=== PATIENT | female | born 1965 | race Caucasian/White ===

== ENCOUNTER 2019-03-11 11:52 | Inpatient (IN) | payer OTHER ==
[2019-03-11 12:42] LABS: Absolute Lymphocytes (CBC) 3.1 K/uL (0.7-4.9); Basophils % 0.8 % (0-1.3); Hematocrit 40.7 % (36.0-45.0); Lymphocytes % 31.7 % (15.3-44.8); MPV 8.2 fL (7.6-11.3); RBC Red Blood Cell Count 4.83 M/uL (3.86-4.86)
--- NOTE | 2019-03-11 12:47 | RAD REPORT ---
EXAM DESCRIPTION: RAD - Chest Single View - 03/11/2019 12:42 pm CLINICAL HISTORY: slurred Chest pain. COMPARISON: ABDOMEN 1 VIEW KUB dated 10/10/2013; ABDOMEN ACUTE SERIES dated 02/29/2012 FINDINGS: Portable technique limits examination quality. The lungs are mildly emphysematous but grossly clear. The heart is normal in size. No displaced fract ures. IMPRESSION: No acute intrathoracic process suspected.
--- NOTE | 2019-03-11 13:01 | RAD REPORT ---
EXAM DESCRIPTION: CT - Ct Stroke Brain Wo Cont - 03/11/2019 12:52 pm CLINICAL HISTORY: SLURRED SPEECH Headache, drowsiness, CVA symptomology COMPARISON: HEAD BRAIN W O CONTRAST dated 09/02/2007 TECHNIQUE: All CT scans are performed using dose optimization technique as appropriate and may inclu de automated exposure control or mA/KV adjustment according to patient size. FINDINGS: No intracranial hemorrhage, hydrocephalus or extra-axial fluid collection.No areas of brai n edema or evidence of midline shift. Air-fluid levels present in the left maxillary antrum compatible with sinusitis. The calvarium is int act. IMPRESSION: No acute intracranial abnormality. If there is continued clinical concern for CVA, MR i maging of the brain would be recommended. Left maxillary sinusitis. The findings were discussed with Dr. Burnette on 03/11/2019 at 12:55 p.m. by telephone.
[2019-03-11 13:06] LABS: BUN Blood Urea Nitrogen 16 mg/dL (7-18); Bicarbonate 28 mmol/L (21-32); Glucose Level 108 mg/dL (74-106); Potassium 3.6 mmol/L (3.5-5.1); Sodium Level 139 mmol/L (136-145)
[2019-03-11] MEDS ORDERED: ACETAMINOPHEN 500 MG TAB ONE (13:19)
--- NOTE | 2019-03-11 14:41 | RAD REPORT ---
EXAM DESCRIPTION: MRI - Brain W/Wo Cont - 03/11/2019 2:07 pm CLINICAL HISTORY: . Headache, drowsiness, CVA symptomology COMPARISON: MRA Head Wo Cont dated 03/11/2019; Ct Stroke Brain Wo Cont dated 03/11/2019 TECHNIQUE: Multi-sequence, multiplanar MR imaging of the brain was performed with contrast. FINDINGS: No intracranial hemorrhage, hydrocephalus, or extra-axial fluid collection. No midline pauline ft is evident. No intracranial mass. 8 mm nonhemorrhagic lacunar infarct is present right basal gangl ia demonstrating acute DWI/ ADC features. The midline structures are normally formed. Moderate fluid is seen in the left maxillary antrum. Post-contrast images show no abnormal enhancement to suggest tumor or infection. IMPRESSION: Acute nonhemorrhagic lacunar infarct right basal ganglia measuring 8 mm. The findings were discussed with Dr. Burnette in the emergency room on 03/11/2019 at 2:37 p.m. by tele phone.
--- NOTE | 2019-03-11 14:43 | RAD REPORT ---
EXAM DESCRIPTION: MRI - MRA Head Wo Cont - 03/11/2019 2:32 pm CLINICAL HISTORY: SLURRED SPEECH CVA COMPARISON: Ct Stroke Brain Wo Cont dated 03/11/2019 FINDINGS: 3D noncontrast [id number] MR angiography of the [place] was performed. No aneurysm, flow-limiting stenosis or vascular malformation is seen. Forward flow seen in codominant vertebral arteries. The visualized dural venous sinuses appear patent. IMPRESSION: No significant flow abnormality of the [place] is identified.
--- NOTE | 2019-03-11 14:46 | RAD REPORT ---
EXAM DESCRIPTION: MRI - MRA Neck W/Wo Cont - 03/11/2019 2:32 pm CLINICAL HISTORY: . Headache, drowsiness, CVA COMPARISON: No comparisons FINDINGS: Contrast enhance 2D [id number] MR angiography of the neck vessels was performed. Left aortic arch is identified. Normal great vessel branching pattern is seen. Subclavian artery stent common carotid arteries are patent bilaterally. No significant carotid stenos is seen on either side. No significant flow abnormality detected. Antegrade flow is seen in the colon dominant vertebral elisha negin. IMPRESSION: No significant flow abnormality of the neck vessels.
[2019-03-11] MEDS ORDERED: MORPHINE 2 MG/ML SYR IV PRN (15:23)
[2019-03-11] MEDS ORDERED: ONDANSETRON 4 MG/2 ML VIAL IV PRN (15:23)
[2019-03-11] MEDS ORDERED: Oxycodone HCl/Acetaminophen 1 TAB TAB PO PRN (15:27)
[2019-03-11] MEDS ORDERED: ACETAMINOPHEN 325 MG TABLET PO PRN (15:27)
[2019-03-11] MEDS ORDERED: ALBUTEROL 2.5 MG/3 ML NEB SOL NEB PRN (15:27)
[2019-03-11] MEDS ORDERED: HYDRALAZINE HCL 20 MG/ML VIAL IV PRN (15:27)
[2019-03-11] MEDS ORDERED: ASPIRIN 81 MG CHEWABLE TABLET ONE (15:29)
--- NOTE | 2019-03-11 15:31 | EDPHYS ---
Physician Documentation [facility] Name: Jeanine Sandoval Age: 53 yrs Sex: Female : 1965 Arrival Date: 03/11/2019 Time: 11:54 Bed 26 Private MD: Barron Youngblood E ED Physician Donny Burnette HPI: 03/11 15:30 This 53 yrs old Female presents to ER via Ambulatory with complaints of kdr Slurred Speech. 15:30 The patient presents to the emergency department with a speech or higher order brain kdr function problem, aphasia, that is mild. Onset: The symptoms/episode began/occurred yesterday. Context: occurred at home, occurred while the patient was at rest. Associated signs and symptoms: Pertinent positives: weakness. Severity of symptoms: At their worst the symptoms were mild in the emergency department the symptoms have improved markedly, Except for speech. 18:45 Patient's baseline: Neuro: alert and fully oriented, Motor: no deficits, Ambulation: kdr walks without assistance, Speech: slurred, The patient has a previous history of HTN. Current symptoms: Slurred speech. The patient has not experienced similar symptoms in the past. The patient has not recently seen a physician. VP SCIENTIFIC AFFAIRS: 12:00 LMP N/A - Hysterectomy iw Historical: - Allergies: 12:01 Latex, Natural Rubber; iw - PMHx: 12:01 Hypertension; iw - PSHx: 12:01 Hysterectomy; Tubal ligation; iw - Immunization history:: Adult Immunizations up to date. - Social history:: Smoking status: Patient/guardian denies using tobacco. - Ebola Screening: : No symptoms or risks identified at this time. ROS: 18:45 Constitutional: Negative for fever, chills, and weight loss, Eyes: Negative for injury, kdr pain, redness, and discharge, ENT: Negative for injury, pain, and discharge, Neck: Negative for injury, pain, and swelling, Cardiovascular: Negative for chest pain, palpitations, and edema, Respiratory: Negative for shortness of breath, cough, wheezing, and pleuritic chest pain, Abdomen/GI: Negative for abdominal pain, nausea, vomiting, diarrhea, and constipation, Back: Negative for injury and pain, : Negative for injury, bleeding, discharge, and swelling, MS/Extremity: Negative for injury and deformity, Skin: Negative for injury, rash, and discoloration, Psych: Negative for depression, anxiety, suicide ideation, homicidal ideation, and hallucinations, Allergy/Immunology: Negative for hives, rash, and allergies, Endocrine: Negative for neck swelling, polydipsia, polyuria, polyphagia, and marked weight changes, Hematologic/Lymphatic: Negative for swollen nodes, abnormal bleeding, and unusual bruising. 18:45 Neuro: Positive for 18:48 Neuro: Positive for The patient had acute onset of slurred speech and possible left kdr facial droop. The facial component has resolved. Exam: 18:48 Constitutional: This is a well developed, well nourished patient who is awake, alert, kdr and in no acute distress. Head/Face: Normocephalic, atraumatic. Eyes: Pupils equal round and reactive to light, extra-ocular motions intact. Lids and lashes normal. Conjunctiva and sclera are non-icteric and not injected. Cornea within normal limits. Periorbital areas with no swelling, redness, or edema. ENT: Nares patent. No nasal discharge, no septal abnormalities noted. Tympanic membranes are normal and external auditory canals are clear. Oropharynx with no redness, swelling, or masses, exudates, or evidence of obstruction, uvula midline. Mucous membranes moist. Neck: Trachea midline, no thyromegaly or masses palpated, and no cervical lymphadenopathy. Supple, full range of motion without nuchal rigidity, or vertebral point tenderness. No Meningismus. Chest/axilla: Normal chest wall appearance and motion. Nontender with no deformity. No lesions are appreciated. Cardiovascular: Regular rate and rhythm with a normal S1 and S2. No gallops, murmurs, or rubs. Normal PMI, no JVD. No pulse deficits. Respiratory: Lungs have equal breath sounds bilaterally, clear to auscultation and percussion. No rales, rhonchi or wheezes noted. No increased work of breathing, no retractions or nasal flaring. Abdomen/GI: Soft, non-tender, with normal bowel sounds. No distension or tympany. No guarding or rebound. No evidence of tenderness throughout. Back: No spinal tenderness. No costovertebral tenderness. Full range of motion. Skin: Warm, dry with normal turgor. Normal color with no rashes, no lesions, and no evidence of cellulitis. MS/ Extremity: Pulses equal, no cyanosis. Neurovascular intact. Full, normal range of motion. Psych: Awake, alert, with orientation to person, place and time. Behavior, mood, and affect are within normal limits. 18:48 Neuro: Orientation: is normal, Mentation: is normal, Memory: is normal, Cranial nerves: grossly normal, Cerebellar function: Motor: no acute changes, Sensation: no obvious gross deficits, Gait: is steady. Vital Signs: 12:00 BP 126 / 94; Pulse 100; Resp 18 S; Temp 97.3; Pulse Ox 96% on R/A; Weight 81.65 kg; iw Height 5 ft. 4 in. (162.56 cm); 13:18 BP 140 / 99; Pulse 100; Resp 18; Pulse Ox 99% ; bp 14:34 Pulse 76; Resp 16; Pulse Ox 99% ; bp 15:17 BP 127 / 85; Pulse 74; Resp 20; Temp 98.0(O); Pulse Ox 98% ; lt1 17:10 BP 132 / 92; Pulse 85; Resp 16; Pulse Ox 97% ; bp 12:00 Body Mass Index 30.90 (81.65 kg, 162.56 cm) iw NIH Stroke Scale Scores: 12:13 NIHSS Score: 1 bp MDM: 12:58 ED course: CT head neg/Denys. kdr 15:30 Patient medically screened. kdr 18:48 Data reviewed: vital signs, nurses notes, lab test result(s), radiologic studies. kdr Counseling: I had a detailed discussion with the patient and/or guardian regarding: the historical points, exam findings, and any diagnostic results supporting the discharge/admit diagnosis, lab results, radiology results, the need for further work-up and treatment in the hospital. 18:48 Physician consultation: Bryson Saxena MD regarding admission, consult, patient's kdr condition, need to evaluate the patient as soon as possible, and will see patient in inpatient room, tomorrow. 03/11 12:19 Order name: Basic Metabolic Panel; Complete Time: 13:13 kdr 03/11 12:19 Order name: CBC with Diff; Complete Time: 13:13 kdr 03/11 12:19 Order name: Protime (+inr); Complete Time: 13:13 kdr 03/11 12:19 Order name: Ptt, Activated; Complete Time: 13:13 kdr 03/11 12:41 Order name: Glucose, Ancillary Testing; Complete Time: 13:13 EDMS 03/11 15:34 Order name: CBC with Automated Diff EDMS 03/11 15:34 Order name: Protime (+INR) EDMS 03/11 15:34 Order name: CBC with Automated Diff EDMS 03/11 15:34 Order name: CBC with Automated Diff EDMS 03/11 15:34 Order name: Comprehensive Metabolic Panel EDMS 03/11 15:34 Order name: Comprehensive Metabolic Panel EDMS 03/11 15:34 Order name: Lipid Profile EDMS 03/11 15:34 Order name: Lipid Profile EDMS 03/11 15:34 Order name: Troponin I EDMS 03/11 12:19 Order name: CT Stroke Brain w/o Contrast; Complete Time: 13:13 kdr 03/11 12:19 Order name: Stroke CXR 1 View; Complete Time: 13:13 kdr 03/11 13:42 Order name: MRA Head Wo Cont; Complete Time: 15:16 EDMS 03/11 13:42 Order name: Brain W/Wo Cont; Complete Time: 15:16 EDMS 03/11 13:42 Order name: MRA Neck W/Wo Cont; Complete Time: 15:16 EDMS 03/11 15:34 Order name: Echo with Doppler EDMS 03/11 15:34 Order name: Troponin I EDMS 03/11 15:34 Order name: Troponin I EDMS 03/11 15:34 Order name: Troponin I EDMS 03/11 15:37 Order name: Carotid Artery Bilateral EDMS 03/11 15:51 Order name: Urinalysis W/Microscopic EDMS 03/11 15:53 Order name: ROD IFA Screen w/Reflex EDMS 03/11 15:53 Order name: Homocysteine EDMS 03/11 12:19 Order name: EKG; Complete Time: 12:20 kdr 03/11 12:19 Order name: Accucheck; Complete Time: 12:32 kdr 03/11 12:19 Order name: Cardiac monitoring; Complete Time: 12:21 kdr 03/11 12:19 Order name: EKG - Nurse/Tech; Complete Time: 12:32 kdr 03/11 12:19 Order name: IV Saline Lock; Complete Time: 12:32 kdr 03/11 12:19 Order name: Labs collected and sent; Complete Time: 12:32 kdr 03/11 12:19 Order name: NPO; Complete Time: 12:21 kdr 03/11 12:19 Order name: O2 Per Protocol; Complete Time: 12:21 kdr 03/11 12:19 Order name: O2 Sat Monitoring; Complete Time: 12:21 kdr 03/11 12:19 Order name: Stroke Swallow Screen; Complete Time: 12:21 kdr 03/11 15:34 Order name: CONS Pharmacy Consult EDHI 03/11 15:34 Order name: Physical Therapy Consult EDHI 03/11 15:34 Order name: NPO EDMS 03/11 15:34 Order name: NPO EDMS 03/11 15:34 Order name: NPO EDMS 03/11 15:36 Order name: Occupational Therapy Consult EDHI Administered Medications: 13:19 Drug: Tylenol 1000 mg Route: PO; bp 14:18 Follow up: Response: No adverse reaction; Pain is decreased bp 15:29 Drug: Aspirin Chewable Tablet 324 mg Route: PO; bp Point of Care Testing: Blood Glucose: 13:18 Blood Glucose: 116 mg/dL; bp Ranges: Critical Glucose Levels:Adult <50 mg/dl or >400 mg/dl <40 mg/dl or >180 mg/dl Disposition: 03/11/19 15:30 Hospitalization ordered by Lauren Betancourt for Inpatient Admission. Preliminary diagnosis are Right basal ganglia lacunar infarct, Slurred speech. - Bed requested for Telemetry/MedSurg (observation). - Status is Inpatient Admission. bp - Condition is Fair. - Problem is new. - Symptoms are unchanged. UTI on Admission? No NIH Stroke Scale - NIH Stroke Score Date: 03/11/2019 Time: 12:13 Total Score = 1 1a. Level of Consciousness (LOC) - 0(Alert) 1b. Level of Consciousness (LOC) (Year \T\ Age) - 0(Both) 1c. LOC Commands (Open \T\ Closes Eyes/Notcher) - 0(Both) 2. Best Gaze (Lateral Gaze Paresis) - 0(Normal) 3. Visual Field Loss - 0(No visual loss) 4. Facial Palsy - 0(Normal) 5a. Left Arm: Motor (10-second hold) - 0(No drift) 5b. Right Arm: Motor (10-second hold) - 0(No drift) 6a. Left Leg: Motor (5-second hold - always test supine) - 0(No drift) 6b. Right Leg: Motor (5-second hold - always test supine) - 0(No drift) 7. Limb Ataxia (finger/nose \T\ heel/snyder - test with eyes open) - 0(Absent) 8. Sensory Loss (pinprick arms/legs/face) - 0(Normal) 9. Best Language: Aphasia (description/naming/reading) - 0(No aphasia) 10. Dysarthria (speech clarity - read or repeat words) - 1(Mild to Moderate) 11. Extinction and Inattention (visual/tactile/auditory/spatial/personal) - 0(No abnormality) Initials: bp Signatures: Dispatcher [employer] EDHI Donny Burnette MD MD kdr Charity Plummer RN RN iw Stephan Murillo RN RN ja1 Deandre Zamora, ADENIKE RN bp Corrections: (The following items were deleted from the chart) 13:42 13:15 MR STROKE PROTOCOL+MRI.RAD.BRZ ordered. [facility] 17:01 15:30 Hospitalization Ordered by Lauren Betancourt MD for Inpatient Admission. ja1 Preliminary diagnosis is Right basal ganglia lacunar infarct; Slurred speech. Bed requested for Telemetry/MedSurg (observation). Status is Inpatient Admission. Condition is Fair. Problem is new. Symptoms are unchanged. UTI on Admission? No. kdr 18:03 17:01 03/11/2019 15:30 Hospitalization Ordered by Lauren Betancourt MD for bp Inpatient Admission. Preliminary diagnosis is Right basal ganglia lacunar infarct; Slurred speech. Bed requested for Telemetry/MedSurg (observation). Status is Inpatient Admission. Condition is Fair. Problem is new. Symptoms are unchanged. UTI on Admission? No. ja1 18:49 18:45 Constitutional: Negative for fever, chills, and weight loss, Eyes: kdr Negative for injury, pain, redness, and discharge, ENT: Negative for injury, pain, and discharge, Neck: Negative for injury, pain, and swelling, Cardiovascular: Negative for chest pain, palpitations, and edema, Respiratory: Negative for shortness of breath, cough, wheezing, and pleuritic chest pain, Abdomen/GI: Negative for abdominal pain, nausea, vomiting, diarrhea, and constipation, Back: Negative for injury and pain, : Negative for injury, bleeding, discharge, and swelling, MS/Extremity: Negative for injury and deformity, Skin: Negative for injury, rash, and discoloration, Psych: Negative for depression, anxiety, suicide ideation, homicidal ideation, and hallucinations, Allergy/Immunology: Negative for hives, rash, and allergies, Endocrine: Negative for neck swelling, polydipsia, polyuria, polyphagia, and marked weight changes, Hematologic/Lymphatic: Negative for swollen nodes, abnormal bleeding, and unusual bruising, kdr
--- NOTE | 2019-03-11 15:31 | ER ---
Nurse's Notes [facility] Name: Jeanine Sandoval Age: 53 yrs Sex: Female : 1965 Arrival Date: 03/11/2019 Time: 11:54 Bed 26 Private MD: Barron Youngblood E Diagnosis: Right basal ganglia lacunar infarct;Slurred speech Presentation: 03/11 11:58 Presenting complaint: Patient states: slurred speech since yesterday, last known well 6 iw pm yesterday. negative arm drift,. no weakness in legs, feels sluggish, felt like her face was weak yesterday but has improved, no facial droop at this time. Transition of care: patient was not received from another setting of care. Onset of symptoms was March 10, 2019 at 18:00. Risk Assessment: Do you want to hurt yourself or someone else? Patient reports no desire to harm self or others. Initial Sepsis Screen: Does the patient meet any 2 criteria? No. Patient's initial sepsis screen is negative. Does the patient have a suspected source of infection? No. Patient's initial sepsis screen is negative. Care prior to arrival: None. 11:58 Method Of Arrival: Ambulatory iw 11:58 Acuity: TRINA 2 iw 12:00 An acute neurological deficit is present. The charge nurse has been notified. The bp patient has been moved to a treatment area. Pre-hospital glucose is not applicable to this patient. Triage Assessment: 12:12 The onset of the patients symptoms was March 10, 2019 at 18:00. General: Appears bp distressed, comfortable, obese, Behavior is cooperative, appropriate for age, anxious. Pain: Denies pain. EENT: No deficits noted. Neuro: Level of Consciousness is awake, alert, obeys commands, Oriented to person, place, time, situation, Appropriate for age Explosive Expert are equal bilaterally Moves all extremities. Full function Gait is unsteady, Speech is slurred, Facial symmetry appears normal, Pupils are PERRLA, Reports SLURRED SPEECH. Cardiovascular: Rhythm is sinus rhythm. Respiratory: No deficits noted. GI: No signs and/or symptoms were reported involving the gastrointestinal system. : No signs and/or symptoms were reported regarding the genitourinary system. Derm: No deficits noted. Musculoskeletal: No deficits noted. CROZER: 12:00 LMP N/A - Hysterectomy iw Stroke Activation: Symptom onset > 6 hours Physician: Stroke Attending; Name: ; Notified At: ; Arrived At: Physician: Chief Stroke Resident; Name: ; Notified At: ; Arrived At: Physician: Stroke Resident; Name: ; Notified At: ; Arrived At: Physician: ED Attending; Name: ; Notified At: ; Arrived At: Physician: ED Resident; Name: ; Notified At: ; Arrived At: Historical: - Allergies: 12:01 Latex, Natural Rubber; iw - PMHx: 12:01 Hypertension; iw - PSHx: 12:01 Hysterectomy; Tubal ligation; iw - Immunization history:: Adult Immunizations up to date. - Social history:: Smoking status: Patient/guardian denies using tobacco. - Ebola Screening: : No symptoms or risks identified at this time. Screenin:16 Abuse screen: Denies threats or abuse. Denies injuries from another. Nutritional bp screening: No deficits noted. Tuberculosis screening: No symptoms or risk factors identified. Fall Risk No fall in past 12 months (0 pts). No secondary diagnosis (0 pts). No IV (0 pts). Ambulatory Aid- None/Bed Rest/Nurse Assist (0 pts). Gait- Weak (10 pts.). Mental Status- Oriented to own ability (0 pts). Total Rhodes Fall Scale indicates No Risk (0-24 pts). Assessment: 12:13 VAN Scoring: Arm Drift: Patients demonstrates NO arm weakness. Patient is VAN Negative. bp The patient has not been NPO before screening. The patient is currently on the following diet: REGULAR The patient is alert, and able to follow commands. The patient exhibits slurred or garbled speech. The patient is not exhibiting difficulty speaking. The patient does not exhibit difficulty understanding words. The patient is able to swallow own secretions with no drooling or need for suction. Patient tolerated one teaspoon of water. No drooling, immediate coughing, gurgling, or clearing of the throat was noted. The patient tolerated 90mL of water. No drooling, immediate coughing, gurgling, or clearing of the throat was noted. The patient passed the bedside swallow screening. Oral medications may be given as ordered. Contact Physician for further diet orders. Provider notified of bedside swallow screening results: Donny Heller MD. T-PA (Activase) Screening: Contraindications: Patient reports onset of signs and symptoms of stroke greater than 6 hours ago: Yes. General: SEE TRIAGE NOTE. 13:18 Reassessment: DR HELLER AT B/S. MRI PENDING. bp 13:27 Reassessment: PT TO MRI. bp 14:21 Reassessment: PT REMAINS IN MRI. bp 14:33 Reassessment: PT RETURNED FROM MRI. bp 15:21 Reassessment: ALL CURRENT ORDERS COMPLETED, DISPO PENDING. bp Vital Signs: 12:00 BP 126 / 94; Pulse 100; Resp 18 S; Temp 97.3; Pulse Ox 96% on R/A; Weight 81.65 kg; iw Height 5 ft. 4 in. (162.56 cm); 13:18 BP 140 / 99; Pulse 100; Resp 18; Pulse Ox 99% ; bp 14:34 Pulse 76; Resp 16; Pulse Ox 99% ; bp 15:17 BP 127 / 85; Pulse 74; Resp 20; Temp 98.0(O); Pulse Ox 98% ; lt1 17:10 BP 132 / 92; Pulse 85; Resp 16; Pulse Ox 97% ; bp 12:00 Body Mass Index 30.90 (81.65 kg, 162.56 cm) iw NIH Stroke Scale Scores: 12:13 NIHSS Score: 1 bp ED Course: 11:54 Patient arrived in ED. mr 11:54 Barron Youngblood MD is Private Physician. mr 12:00 Triage completed. iw 12:02 Deandre Zamora, RN is Primary Nurse. bp 12:13 Arm band placed on. bp 12:14 Donny Heller MD is Attending Physician. kdr 12:16 Patient has correct armband on for positive identification. Placed in gown. Bed in low bp position. Call light in reach. Side rails up X2. surveillance system monitor on. Pulse ox on. NIBP on. 12:31 Initial lab(s) drawn, by ED staff, sent to lab. Inserted saline lock: 20 gauge in right lt1 antecubital area, using aseptic technique. 12:32 EKG done, by photovoltaic technician. reviewed by Donny Heller MD. at1 12:43 Stroke CXR 1 View In Process Unspecified. EDMS 12:54 CT Stroke Brain w/o Contrast In Process Unspecified. EDMS 14:09 MRA Head Wo Cont In Process Unspecified. EDMS 14:11 Brain W/Wo Cont In Process Unspecified. EDMS 14:11 MRA Neck W/Wo Cont In Process Unspecified. EDMS 15:26 Lauren Betancourt MD is Hospitalizing Provider. kdr 17:08 No provider procedures requiring assistance completed. Patient admitted, IV remains in bp place. 17:19 Initial lab(s) drawn, by me, sent to lab. sg Administered Medications: 13:19 Drug: Tylenol 1000 mg Route: PO; bp 14:18 Follow up: Response: No adverse reaction; Pain is decreased bp 15:29 Drug: Aspirin Chewable Tablet 324 mg Route: PO; bp Point of Care Testing: Blood Glucose: 13:18 Blood Glucose: 116 mg/dL; bp Ranges: Outcome: 15:30 Decision to Hospitalize by Provider. kdr 17:14 Admitted to Med/surg accompanied by tech, via wheelchair, room 228, with chart, Report bp called to KAY JEONG 17:14 Condition: stable 17:14 Instructed on the need for admit. 18:03 Patient left the ED. bp NIH Stroke Scale - NIH Stroke Score Date: 03/11/2019 Time: 12:13 Total Score = 1 1a. Level of Consciousness (LOC) - 0(Alert) 1b. Level of Consciousness (LOC) (Year \T\ Age) - 0(Both) 1c. LOC Commands (Open \T\ Closes Eyes/Invoice Clerk) - 0(Both) 2. Best Gaze (Lateral Gaze Paresis) - 0(Normal) 3. Visual Field Loss - 0(No visual loss) 4. Facial Palsy - 0(Normal) 5a. Left Arm: Motor (10-second hold) - 0(No drift) 5b. Right Arm: Motor (10-second hold) - 0(No drift) 6a. Left Leg: Motor (5-second hold - always test supine) - 0(No drift) 6b. Right Leg: Motor (5-second hold - always test supine) - 0(No drift) 7. Limb Ataxia (finger/nose \T\ heel/snyder - test with eyes open) - 0(Absent) 8. Sensory Loss (pinprick arms/legs/face) - 0(Normal) 9. Best Language: Aphasia (description/naming/reading) - 0(No aphasia) 10. Dysarthria (speech clarity - read or repeat words) - 1(Mild to Moderate) 11. Extinction and Inattention (visual/tactile/auditory/spatial/personal) - 0(No abnormality) Initials: bp Signatures: Dispatcher [employer] Braeden Mustafa, Donny Black RN, MD MD [facility] mr Charity Plummer RN RN iw Ayah Smith, ve teacher EKG Tat1 Deandre Zamora RN RN bp Arellano, Brissa lt1
--- NOTE | 2019-03-11 15:32 | EKG ---
Test Date: 2019-03-11 Test Time: 12:30:06 Art Class Model: MARIANA MEASUREMENT RESULTS: Intervals: Rate: 74 TX: 130 QRSD: 92 QT: 414 QTc: 459 Alba: P: 63 TX: 130 QRS: 42 T: 29 INTERPRETIVE STATEMENTS: Normal sinus rhythm Normal ECG No previous ECG available for comparison Electronically Signed On 03-11-19 15:31:44 PHOTOGRAPHER MOTION PICTURE by Marquis Swift
[2019-03-11] MEDS: ASPIRIN EC 81 MG TAB PO SCH (16:00)
--- NOTE | 2019-03-11 17:02 | RAD REPORT ---
EXAM DESCRIPTION: US - CP - 03/11/2019 4:33 pm CLINICAL HISTORY: CVA COMPARISON: MRA neck same date TECHNIQUE: Real-time sonographic evaluation of both carotid systems was performed. Walker scale and Do ppler interrogation were performed with waveform tracing bilaterally. FINDINGS: Normal high resistance waveforms are noted in both external carotid arteries. The common c arotid arteries and internal carotid arteries show normal low resistance waveforms. No significant plaque formation is seen. Peak systolic and end diastolic velocity values and the ICA/ CCA ratios are in the non-hemodynamically significant range. Antegrade flow seen in both vertebral arteries. Velocity values and ratios were recorded and are retained in the patient's imaging records. IMPRESSION: No significant atherosclerotic changes noted. No evidence of a hemodynamically significant stenosis.
[2019-03-11 18:14] VITALS: BMI 31.4
[2019-03-11] MEDS: HEPARIN 5000 UNIT/ML 1 ML VIAL SQ SCH (18:46)
[2019-03-11] MEDS: CLOPIDOGREL 75 MG TABLET PO SCH (21:51)
[2019-03-11] MEDS: ATORVASTATIN 20 MG TAB PO SCH (21:51)
[2019-03-12] MEDS: HEPARIN 5000 UNIT/ML 1 ML VIAL SQ SCH ×3 (01:05→16:12)
--- NOTE | 2019-03-12 04:03 | HP ---
Date of Admission: 03/11/2019 Presenting Complaint: Slurred speech. History Of Present Illness: Ms. Jeanine Sandoval is a 53-year-old female with history of hypertension si nce several years, chronic tobacco use, and family history of CVA, who presented because of new onset slurred speech, accompanied with headache and development of unsteady gait yesterday while gardening . She said her headache was intense, more frontal. She denies any associated nausea or vomiting, no fevers. She has taken some aspirins as well as doubled up on lisinopril medication with subsequent improvement in her headache, but her slurred speech did not entirely improve. However, we can note t his morning, she was able to talk a bit better, but symptoms continued to persist and she presented t o the ED. In the ED, she had head CT scan done which was negative. MRI shows right basal ganglia la cunar infarct. The patient has been admitted for CVA. She still admit to intermittent headache now. She denies any weakness of any extremity. She denies any abnormal sensation or tingling sensation. Past Medical History: Significant for hypertension since 7 years. Past Surgical History: None. Family History: Significant for mother with CVA in her 60s. Social History: Patient have a history of tobacco use. Smokes about half a pack a day since the t 19 years. She denies any alcohol or illicit drug use. She is fully functional at baseline. Allergies: NO KNOWN DRUG ALLERGIES. Home Medications: Lisinopril, patient unsure of dose. She also takes daily aspirin. Review of Systems: All systems reviewed x14 were negative except as mentioned above. Physical Examination: Current Vital Signs: Blood pressure of 120/86, pulse of 74, respiratory rate of 18, O2 saturation is 96% on room air. Temperature afebrile at 97.7. General: Overweight middle-aged female, not in any distress, appears intermittently anxious. HEENT: Head is atraumatic, normocephalic. Pupils equal and reactive to light. Extraocular motor mo vement intact. Neck: No JVD. No carotid bruit. Respiratory: Good air entry. No crepitations. Cardiovascular: S1, S2. Rate and rhythm regular. No murmur. GI: Abdomen full, soft, nontender. Bowel sounds positive. Rectal: Deferred. Extremities: Varicose veins of lower extremity, but no pedal edema. No calf tenderness. Neuro: Patient is alert, conversant. No asymmetrical facial weakness elicited. Power tone over ext remities are symmetrical globally. Deep tendon reflexes are 2+. No pronator drift. Laboratory Data: EKG showed normal sinus rhythm at 74 beats per minute. No ST-segment changes. No hypertensive pattern. WBC 9.7, hemoglobin 13.7, platelets 231, creatinine 0.67, sodium 139, potassiu m 3.6. Homocysteine level pending. Glucose 108. INR 1.0, PTT 35. Head CT shows no acute intracran ial pathology. MRI of the brain shows right basal lacunar infarct. MRA of the head and neck shows n o acute area of reduced flow or stenosis including [place]. Impression: 1.Right basal ganglia infarct. 2.Hypertension. 3.Chronic tobacco use. Plan: We will admit patient to observation. We will manage patient for the followin.New-onset CVA. We will consult Neurology. Patient outside window for tPA given onset since yeste rday. We will consult PT and OT. We will also obtain bedside speech and swallow eval. We will star t patient on aspirin and Plavix, since already taking aspirin at home. We will obtain lipid panel. We will start empiric atorvastatin now. We will obtain homocysteine as well as ROD levels. We start patient on folic acid. Obtain TSH. 2.Hypertension. Blood pressure at level for adequate neuro perfusion. We will hold home medication s for now. IV hydralazine if MAP greater than 90. 3.DVT prophylaxis, subcutaneus heparin despite new CVA. 4.Tobacco use. Need for tobacco cessation advised. We will start nicotine patch. 5.We will obtain echocardiogram and carotid Doppler ultrasound. Disposition: Possible hospital stay for 24 to 48 hours. We admit patient to inpatient status now. EO/MODL Voice ID: [id number]
[2019-03-12 06:38] LABS: Absolute Lymphocytes (CBC) 2.4 K/uL (0.7-4.9); Basophils % 0.6 % (0-1.3); Hematocrit 42.9 % (36.0-45.0); Lymphocytes % 27.8 % (15.3-44.8); MPV 8.2 fL (7.6-11.3); RBC Red Blood Cell Count 4.98 M/uL (3.86-4.86)
[2019-03-12 06:42] LABS: Protime INR 0.99
[2019-03-12 07:01] LABS: ALT/SGPT 22 U/L (12-78); AST/SGOT 14 U/L (15-37); Albumin 3.3 g/dL (3.4-5.0); Alkaline Phosphatase 116 U/L (45-117); BUN Blood Urea Nitrogen 16 mg/dL (7-18); Bicarbonate 25 mmol/L (21-32); Bilirubin Total 0.3 mg/dL (0.2-1.0); Glucose Level 97 mg/dL (74-106); HDL Cholesterol 50 mg/dL (40-60); LDL Cholesterol, Calculated 89 (<130); Potassium 3.9 mmol/L (3.5-5.1); Protein, Total 6.6 g/dL (6.4-8.2); Sodium Level 140 mmol/L (136-145); Troponin I < 0.02 ng/mL (0.0-0.045)
[2019-03-12] MEDS: FOLIC ACID 1 MG TABLET PO SCH (07:54)
[2019-03-12] MEDS: ASPIRIN EC 81 MG TAB PO SCH (07:54)
[2019-03-12] MEDS: CLOPIDOGREL 75 MG TABLET PO SCH (07:54)
--- NOTE | 2019-03-12 09:55 | P.PN ---
Subjective Date of Service: 03/12/19 Chief Complaint: Seen , feels fine , states speech better now Subjective: No new changes Review of Systems 10-point ROS is otherwise unremarkable Physical Examination - Vital Signs Temperature: 97.4 F Blood Pressure: 103/61 Pulse: 62 Respirations: 20 Pulse Ox (%): 96 - Physical Exam General: Alert, In no apparent distress, Oriented x3 HEENT: Atraumatic, Normocephalic, PERRLA Neck: Supple, 2+ carotid pulse no bruit, JVD not distended Respiratory: Clear to auscultation bilaterally, Normal air movement Cardiovascular: No edema, Normal pulses, Regular rate/rhythm, Normal S1 S2 Gastrointestinal: Normal bowel sounds, Soft and benign Musculoskeletal: No clubbing, No swelling Integumentary: No rashes, No breakdown Neurological: Normal gait, Normal speech, Normal strength at 5/5 x4 extr ( speech unchanged from eval yesterday ) - Studies Laboratory Data (last 24 hrs) 03/11/19 12:29: PT 11.8, INR 1.00, APTT 35.0 03/11/19 12:29: WBC 9.7, Hgb 13.7, Hct 40.7, Plt Count 231 03/11/19 12:29: Sodium 139, Potassium 3.6, BUN 16, Creatinine 0.67, Glucose 108 H Laboratory Last Values WBC 8.8 K/uL (4.3-10.9) 03/12/19 06:13 RBC 4.98 M/uL (3.86-4.86) H 03/12/19 06:13 Hgb 14.3 g/dL (12.0-15.0) 03/12/19 06:13 Hct 42.9 % (36.0-45.0) 03/12/19 06:13 MCV 86.2 fL (80-100) 03/12/19 06:13 MCH 28.7 pg (27.0-35.0) 03/12/19 06:13 MCHC 33.3 g/dL (32.0-36.0) 03/12/19 06:13 RDW 14.7 % (12.1-15.2) 03/12/19 06:13 Plt Count 219 K/uL (152-406) 03/12/19 06:13 MPV 8.2 fL (7.6-11.3) 03/12/19 06:13 Neutrophils % 64.3 % (41.7-73.7) 03/12/19 06:13 Lymphocytes % 27.8 % (15.3-44.8) 03/12/19 06:13 Monocytes % 4.4 % (3.3-12.3) 03/12/19 06:13 Eosinophils % 2.9 % (0-4.4) 03/12/19 06:13 Basophils % 0.6 % (0-1.3) 03/12/19 06:13 Absolute Neutrophils 5.7 K/uL (1.8-8.0) 03/12/19 06:13 Absolute Lymphocytes 2.4 K/uL (0.7-4.9) 03/12/19 06:13 Absolute Monocytes 0.4 K/uL (0.1-1.3) 03/12/19 06:13 Absolute Eosinophils 0.3 K/uL (0-0.5) 03/12/19 06:13 Absolute Basophils 0.1 K/uL (0-0.5) 03/12/19 06:13 PT 11.7 SECONDS (9.5-12.5) 03/12/19 06:13 INR 0.99 03/12/19 06:13 APTT 35.0 SECONDS (24.3-36.9) 03/11/19 12:29 Sodium 140 mmol/L (136-145) 03/12/19 06:13 Potassium 3.9 mmol/L (3.5-5.1) 03/12/19 06:13 Chloride 109 mmol/L (98-107) H 03/12/19 06:13 Carbon Dioxide 25 mmol/L (21-32) 03/12/19 06:13 BUN 16 mg/dL (7-18) 03/12/19 06:13 Creatinine 0.65 mg/dL (0.55-1.3) 03/12/19 06:13 Estimated GFR > 90 mL/min (=/>90) 03/12/19 06:13 Glucose 97 mg/dL (74-106) 03/12/19 06:13 POC Glucose 116 mg/dl (65-120) 03/11/19 12:28 Calcium 8.4 mg/dL (8.5-10.1) L 03/12/19 06:13 Total Bilirubin 0.3 mg/dL (0.2-1.0) 03/12/19 06:13 AST 14 U/L (15-37) L 03/12/19 06:13 ALT 22 U/L (12-78) 03/12/19 06:13 Alkaline Phosphatase 116 U/L (45-117) 03/12/19 06:13 Troponin I < 0.02 ng/mL (0.0-0.045) 03/12/19 06:13 Serum Total Protein 6.6 g/dL (6.4-8.2) 03/12/19 06:13 Albumin 3.3 g/dL (3.4-5.0) L 03/12/19 06:13 Globulin 3.3 g/dL (2.3-3.5) 03/12/19 06:13 Albumin/Globulin Ratio 1.0 (1.1-1.8) L 03/12/19 06:13 Triglycerides 164 mg/dL (<150) H 03/12/19 06:13 Cholesterol 172 mg/dL (<200) 03/12/19 06:13 LDL Cholesterol, Calc 89 (<130) 03/12/19 06:13 HDL Cholesterol 50 mg/dL (40-60) 03/12/19 06:13 Cholesterol/HDL Ratio 3.44 03/12/19 06:13 Medications List Reviewed: Yes Assessment & Plan - Problems (Diagnosis) (1) Lacunar infarct, acute Current Visit: Yes Status: Acute Discharge Plan: Home Plan to discharge in: 24 Hours - Code Status/Comfort Care Code Status Assessed: Yes Code Status: Full Code Physician Review: Patient Assessed, Agree with Above Assessment and Plan Physician Review Additional Text: # Right basal ganglia lacunar infarct- follow pending echo -carotid us neg for flow abn - MRI brain and MRA reviewed - follow formal neurology eval -pending homocysteine and malu levels - follow PT and OT eval today , may need speech eval also - although normal speech flow now # HTN -controlled, BP borderline low -c/w to hold off lisinopril # Tob use -cessation advised , on nicotine patch # DVT prop - sc hep Critical Care: No Time Spent Managing Pts Care (In Minutes): 30
[2019-03-12 09:58] LABS: Urine Appearance CLEAR; Urine Bilirubin NEGATIVE (NEG); Urine Blood NEGATIVE (NEG); Urine Color YELLOW; Urine Glucose NEGATIVE (NEG); Urine Protein NEGATIVE (NEG); Urine Specific Gravity 1.025 (1.005-1.030); Urine Urobilinogen 0.2 mg/dL (0.2-1.0); Urine pH 5.5 (5.0-7.0)
[2019-03-12] MEDS ORDERED: INFLUENZA VACCINE (for 3y+) 0.5 ML DOSE IMVAC ONE (10:00)
[2019-03-12 10:27] LABS: Urine Bacteria <20 /HPF (<20); Urine Culture Reflex Order NOT NEEDED; Urine Mucus LIGHT /HPF (NONE SEEN); Urine RBC <5 /HPF (NONE SEEN)
[2019-03-12] MEDS ORDERED: LORazepam 2 MG/ML VIAL IV PRN (17:35)
[2019-03-12] MEDS: ATORVASTATIN 20 MG TAB PO SCH (20:26)
--- NOTE | 2019-03-12 22:23 | CON ---
Reason For Consultation: Consultation called because of stroke. History Of Present Illness: Ms. Sandoval is a 53-year-old right-handed patient with 5-year h istory of hypertension and 20+ year history of smoking at least half a pack of cigarettes daily and a strong family history of stroke, who comes in with an acute stroke. She was well until 6:00 p.m. on March 10, when she had sudden onset difficulty getting her words out as words were slurred and s he had some problems getting her thoughts together. She denied weakness in the legs or arms or loss of sensation. She arrived at [facility] the following day, that is March 11, at 11:54 a.m . She was worked up by a brain CT scan, which showed no acute ischemic hemorrhagic change. Given th e patient was well out of the window for tissue plasminogen activator, she was not given tPA. Her lebron bsequent workup included brain MRI and the stay following admission identified an 8 mm acute nonhemor rhagic right basal ganglia stroke. Her additional workup revealed a negative MRA of the head and nec k and her carotid Doppler study showed no evidence of any significant stenosis and her electrocardiog krystle showed a normal sinus rhythm. Chest x-ray showed no acute abnormalities in the cardiothoracic re gion as imaged by x-ray. She admits to taking an aspirin daily prior to this event and was seen by Naresh Chan, her primary care physician from which she is taking antihypertensive medications. She is not taking medications for dyslipidemia and does not have diabetes mellitus. Since her admiss ion, her symptoms have resolved largely with minor dysarthria. Otherwise, she has no deficits in ter ms of face, arm, or leg weakness or numbness. Past Medical History: As indicated. Surgical History: Tubal ligation, hysterectomy. Social History: Smokes regularly, drinks a lot of caffeinated beverages. Denies alcohol use. Allergies: LATEX AND RUBBER. Family History: Mother and father had strokes. Review of Systems: She denies any recent fevers, chills, nausea, vomiting, myalgias, arthralgias, headache, weight rousseau e, rash, or psychiatric complaints. No gastrointestinal or genitourinary issues. Physical Examination: Vital Signs: Blood pressure 129/94, pulse 85, respiratory rate 16, temperature 97.6, oxygen saturati on 96% room air, weight 183 pounds, height 5 feet 4 inches, BMI 31.5. General: Ms. Sandoval is resting comfortably in bed. She is in no acute distress. HEENT: She is normocephalic, atraumatic. Sclerae are anicteric. Oropharynx is pink and moist. Neck: Supple. Chest: Clear. Heart: Regular. Extremities: Show no edema, cyanosis, or clubbing. Neurological: She is alert and oriented to person, place, and situation. She has no expressive or r eceptive aphasias. She just has mild difficulty with labial lingual and guttural sounds. Her crania l nerve examination revealed no focal deficits in terms of facial sensation which is intact bilateral ly. Her face is symmetric with equal excursions. Pupils round and reactive to light and accommodati on. Extraocular movements are intact. Hearing intact bilaterally and tongue and palate are in midli ne. Motor examination in the upper and lower extremities 5/5 proximally and distally. Sensory exami nation intact to light touch, pinprick, temperature in the arms and legs bilaterally. Coordination i ntact in the upper and lower extremities. Gait, normal stance, right arm swing. Ambulates without a ssistive device. NIH stroke scale is 1 for mild dysarthria. Laboratory Studies: Complete blood count with differential is normal. Coagulation panel is normal. Chemistries are unremarkable. Glucose ranged from 90-116, calcium 8.6. Liver function studies are essentially normal. AST 14, ALT 22, alkaline phosphate 116, LDL cholesterol 89, HDL cholesterol 50, cholesterol HDL ratio is 3.44, homocysteine level is pending and ROD is also pending. Urinalysis andrea ws 5-10 epithelial cells, otherwise unremarkable. Assessment: Ms. Sandoval is a 53-year-old patient with stroke in the setting of smoking and hypertens ion. Stroke appears to be lacunar, lipohyalinosis, possibly related to hypertension again and smokin g. She was taking an aspirin daily and yet had the stroke. She actually was mowing her yard when stroke occurred and maybe not well hydrated. She does have a family history of stroke and both par ents having strokes. 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 Sh e may require a short course of outpatient speech therapy. 2.Aspirin 81 mg and Plavix 75 mg daily along with folic acid 1 mg daily. 3.She should continue Lipitor 20 mg at bedtime. 4.The patient was instructed to stop smoking cigarettes. 5.She may have some short-term permissive hypertension, but may start an HAYLEE inhibitor, perhaps at 2 .5 mg daily after discharge. 6.After discharge, follow up in Dr. Saxena's clinic 1 month later. JUSTINA/PREM Voice ID: [id number] Report ID: [id number]
[2019-03-13] MEDS: HEPARIN 5000 UNIT/ML 1 ML VIAL SQ SCH ×2 (00:24→09:00)
[2019-03-13 08:41] VITALS: O2SAT 93
[2019-03-13] MEDS: ASPIRIN EC 81 MG TAB PO SCH (09:22)
[2019-03-13] MEDS: CLOPIDOGREL 75 MG TABLET PO SCH (09:23)
[2019-03-13] MEDS: FOLIC ACID 1 MG TABLET PO SCH (09:23)
--- NOTE | 2019-03-13 10:10 | P.DS ---
Admission Date: 03/11/19 Discharge Date: 03/13/19 Disposition: DC HOME/HOME HEALTH CARE Reason for Admission: Seen , feels fine , states speech better now - Problems (1) Lacunar infarct, acute Current Visit: Yes Status: Acute Brief History of Present Illness: Patient with hx of chronic tobacco use admitted for new onset slurred speech and left sided numbness Hospital Course: on admission patient was noted with right basal ganglia lacunar infract on MRI brain after an initial neg head CT . MRA head and neck, carotid US and Echo shows no issues . She was seen by neurology and recommended outpt speech refferal . She is talking well now with no slowness or slurring. SHE WAS STARTED ON LIPITOR DESPITE NORMAL LIPID PROFILE Vital Signs/Physical Exam: Temp Pulse Resp BP Pulse Ox 98.1 F 72 16 127/79 95 03/13/19 04:00 03/13/19 04:00 03/13/19 04:00 03/13/19 04:00 03/13/19 04:00 General: Alert, In no apparent distress, Oriented x3 HEENT: Atraumatic, Normocephalic, PERRLA Neck: Supple, 2+ carotid pulse no bruit Respiratory: Clear to auscultation bilaterally, Normal air movement Cardiovascular: No edema, Normal pulses, Regular rate/rhythm, Normal S1 S2 Gastrointestinal: Normal bowel sounds, Soft and benign Neurological: Normal gait, Normal speech, Normal strength at 5/5 x4 extr, Sensation intact Laboratory Data at Discharge: WBC 8.8 K/uL (4.3-10.9) 03/12/19 06:13 Hgb 14.3 g/dL (12.0-15.0) 03/12/19 06:13 Hct 42.9 % (36.0-45.0) 03/12/19 06:13 Plt Count 219 K/uL (152-406) 03/12/19 06:13 PT 11.7 SECONDS (9.5-12.5) 03/12/19 06:13 INR 0.99 03/12/19 06:13 APTT 35.0 SECONDS (24.3-36.9) 03/11/19 12:29 Sodium 140 mmol/L (136-145) 03/12/19 06:13 Potassium 3.9 mmol/L (3.5-5.1) 03/12/19 06:13 BUN 16 mg/dL (7-18) 03/12/19 06:13 Creatinine 0.65 mg/dL (0.55-1.3) 03/12/19 06:13 Glucose 97 mg/dL (74-106) 03/12/19 06:13 Total Bilirubin 0.3 mg/dL (0.2-1.0) 03/12/19 06:13 AST 14 U/L (15-37) L 03/12/19 06:13 ALT 22 U/L (12-78) 03/12/19 06:13 Alkaline Phosphatase 116 U/L (45-117) 03/12/19 06:13 Troponin I < 0.02 ng/mL (0.0-0.045) 03/13/19 05:49 Triglycerides 164 mg/dL (<150) H 03/12/19 06:13 Cholesterol 172 mg/dL (<200) 03/12/19 06:13 HDL Cholesterol 50 mg/dL (40-60) 03/12/19 06:13 Cholesterol/HDL Ratio 3.44 03/12/19 06:13 Home Medications: Dextroamphetamine/Amphetamine [Adderall 30 mg Tablet] 30 mg PO BID 03/12/19 Hydrochlorothiazide 25 mg PO DAILY 03/12/19 Ibuprofen 800 mg PO DAILY 03/12/19 lisinopriL [Lisinopril] 20 mg PO DAILY 03/12/19 Aspirin [Aspirin EC 325 MG] 325 mg PO DAILY #30 tablet. 03/13/19 Atorvastatin Calcium [Lipitor*] 20 mg PO BEDTIME #30 tab 03/13/19 New Medications: Aspirin [Aspirin EC 325 MG] 325 mg PO DAILY #30 tablet. Atorvastatin Calcium [Lipitor*] 20 mg PO BEDTIME #30 tab Patient Discharge Instructions: Speech outpatient referral Diet: Low sodium Activity: Ad lorna Followup: Bryson Saxena MD [ASSOCIATE-ACTIVE - CAN ADMIT] - Time spent managing pt's care (in minutes): 35
[2019-03-13 10:20] VITALS: BP 131/81; TEMP 97.4
== END 2019-03-13 11:59 | disposition home or self-care (01) | DRG 66 ==
LOC: ER 11:52 → ERHOLD 16:02 → 2ND 17:15
PROVIDERS: ADMIT Internal Medicine; ATTEND Internal Medicine
DX: I63.81 Other cerebral infarction due to occlusion or stenosis of small artery (principal); R47.81 Slurred speech; F17.210 Nicotine dependence, cigarettes, uncomplicated; Z82.3 Family history of stroke
CPT/HCPCS: 36415; 70450; 70544; 70549; 70553; 71045; 80048; 80053; 80061; 81001; 82947; 83090; 84484; 85025; 85610; 85730; 86038; 93005; 93880; 94760; 97116; 97161; 99285; A9577; J1644; J2270

== ENCOUNTER 2020-03-03 17:26 | Emergency (ER) | payer OTHER ==
--- OUTSIDE RECORDS SUMMARY | 2020-03-03 17:28 | XMS REPORT | Summary of Care ---
:1965 Author Organization [facility] Address [address] [place] [address] Care Team Providers Name Role Phone Barron Youngblood Primary Care Provider Reason for Visit Reason Comments Follow-up varicose veins Encounter Details Date Type Department Care Team Description 02/21/2020 Office Visit [facility] Vascular Babita Otero U lcer of left lower Surgery- Mario Alberto MCCRARY extremity, limited to [address] breakdown of skin [address] [place], [place] (Primary Dx) [address] [address] [place], [place] [phone] [address] [phone] Allergies No Known Allergiesdocumented as of this encounter (statuses as of 02/22/2020) Medications Medication Sig Dispensed Refills Start Date End Date Status lisinopril-hydrochlor TK 1 T PO QD 0 08/31/2019 Active othiazide 20-25 mg per tablet Compression Socks, Use as directed 2 Each 0 09/09/2019 Active Medium MiscIndications: Venous reflux mupirocin 2 % Apply to area(s) 22 g 2 02/21/2020 Active ointmentIndications: 3 (three) times Ulcer of left lower daily. extremity, limited to breakdown of skin traMADoL 50 mg Take 1 tablet by 20 tablet 0 02/21/2020 020 Active tabletIndications: mouth every 6 acute pain (six) hours as needed for Pain (scale 4-6) for up to 7 days. Indications: acute pain documented as of this encounter (statuses as of 02/22/2020) Active Problems Problem Noted Date Varicose veins of both lower extremities with inflamma tion 11/11/2019 Venous ulcer of ankle, left 11/11/2019 Hypertension 11/11/2019 documented as of this encounter (statuses as of 02/22/2020) Social History Tobacco Use Types Packs/Day Years Used Date Never Assessed Sex Assigned at Date Recorded Not on file COVID-19 Exposure Response Date Recorded In the last month, have you been in contact with No / Unsure 02/21/2020 9:20 AM CASINO RUNNER someone who was confirmed or suspected to have Coronavirus / COVID-19? documented as of this encounter Last Filed Vital Signs Vital Sign Reading Time Taken Comments Blood Pressure 157/101 02/21/2020 9:39 AM CASINO RUNNER Pulse 95 02/21/2020 9:39 AM CASINO RUNNER Temperature 36.2 C (97.1 F) 02/21/2020 9:39 AM CASINO RUNNER Respiratory Rate 20 02/21/2020 9:39 AM CASINO RUNNER Oxygen Saturation 96% 02/21/2020 9:39 AM CASINO RUNNER Inhaled Oxygen Concentration - - Weight 87.5 kg (193 lb) 02/21/2020 9:39 AM CASINO RUNNER Height 167.6 cm (5' 6") 02/21/2020 9:39 AM CASINO RUNNER Body Mass Index 31.15 02/21/2020 9:39 AM CASINO RUNNER documented in this encounter Patient Instructions Patient InstructionsHenry Irving DO - 02/21/2020 9:30 AM CSTMupirocin ointment for left leg wound Continue compression on right lower extremity; haylee wrap compression to left lower extremity Follow up in clinic in 1 month NO RUNNER documented in this encounter Progress Notes Maria Teresa Booker MD - 02/21/2020 9:30 AM CSTI discussed the patient with Dr. Irving then personally examined the patient on 02/21/2020. I agreewith the note as detailed by Dr. Irving. I actively participated in the decision- making process regarding the assessment and plan of care. Please see the resident's note for additional details. Wound is improving. Continue compression. RTC in 1 month Maria Teresa Booker MD, [facility] Vascular Surgery NO RUNNER Henry Irving DO - 02/21/2020 9:30 AM CSTVASCULAR SURGERY CLINIC NOTE Progress Note Date of Service: 02/21/20 Visit type: Follow up for varicose veins and venous ulcer after telemed visit HISTORY OF PRESENT ILLNESS: Ms. Sandoval is a 54 year old year old female patient with a history of venous insufficiency and bilateral varicose veins who is here 1 week after telehealth visit for worsening L ulcer of her calf thathas not been healing for about 6 months now. There is redness around the wound and has tenderness. She also has swelling and pain in her thighs bilaterally. She states that she was told to try to keep the ulcer dry to promote healing, but it has not dried at all and is draining thin yellowish fluid with more skin breakdown. She also says the varicose veins in her thighs have increased in size and describes them as "huge and gross" since she's been wearing the compression stockings to her knee. She has swelling 2x the morning size, pain and feelings of heaviness in her legs bilaterally. She had vein surgery 6-7 years ago at [place] at [facility] but unsure what surgery it was. She had a ulcer on the right calf at that time and varicose veins at that time; which resolved after the surgery with compression stockings for several months. She stopped wearing compression since and in the past year or two, developed the new symptoms of leg heaviness and varicose veins. Denies any fever or chills. No chest pain. No SOB.She still takes lisinopril- HCTZ. She has pain associated with standing for long periods of time. 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 Interval H&P 02/20/20 Patient presents for follow up of venous insufficiency and LLE wound. States the bacitracin was not working well for her. She began using mupirocin with improvement in her leg wound. Venous duplex withdeep and superficial venous system reflux. Prominent varicose veins. REVIEW OF SYSTEMS: General/Constitutional: Negative except per HPI Skin/Breast: Negative except per HPI HEENT: Negative except per HPI CV: Negative except per HPI Respiratory: Negative except per HPI GI: Negative except per HPI : Negative except per HPI Musculoskeletal: left leg wound Neurologic: Negative except per HPI Hematologic: Negative except per HPI Endocrine: Negative except per HPI Physical Exam: BP (!) 157/101 (BP Location: Right arm, Patient Position: Sitting, BP CUFF SIZE: Adult Large) | Pulse 95 | Temp 36.2 C (97.1 F) (Temporal Artery) | Resp 20 | Ht 1.676 m (5' 6") | Wt 87.5 kg (193 lb) | SpO2 96% | BMI 31.15 kg/m Constitutional: no acute distress, alert and oriented x3 Respiratory: breathing unlabored on room air Cardio: RRR Abdomen: soft, symmetrical, non-distended Sensory Function: within normal limits Neuro: NFD Extremities/MSK: (pictures below) tender L lateral ankle ulcer, mild erythema, no purulence Skin: well perfused, non-pitting edema R>L Psych: appropriate insight, affect and judgment Labs/Imaging: No new labs Vascular Labs: Procedure: VENOUS DUPLEX 09/13/2019 A venous duplex examination of the BILATERAL lower extremities was performed to determine the presence or absence of venous potency and competency. Exam was performed in an upright and reverse Trendelenburg position. Venous duplex scan of the lower extremity demonstrates normal compressibility of the distal externaliliac, common femoral, saphenofemoral junction, profunda femoral, femoral, popliteal and calf veins.Doppler signals are phasic, spontaneous, and respond to distal augmentations. No evidence of deep or superficial venous thrombosis identified. The greater saphenous vein above the knee and small saphenous vein have been previously ablated bilaterally. There is large anterior accessory greater saphenous vein with superficial reflux identified feeding varicosities in the thigh and calf bilaterally. There is a large gastroc contour band saw operator vertical noted in the right calf. Rt Deep Findings Venous reflux in the common femoral vein is present. RT Superficial Superficial venous reflux lasting >500 milliseconds is identified in the saphenofemoral junction,the greater saphenous vein below the knee, and in the anterior greater accessory vein. AAGSV: 0.83 cm. GSV at the saphenofemoral junction measures 0.89 cm. GSV below the knee at the largest diameter measures 0.61 cm. LT Deep Findings Venous reflux in the common femoral vein is present. LT Superficial Superficial venous reflux lasting >500 milliseconds is identified in the saphenofemoral junction,the greater saphenous vein below the knee, and in the anterior greater accessory vein. AAGSV: 0.92 cm. GSV at the saphenofemoral junction measures 0.87 cm. GSV below the knee at the largest diameter measures 0.44 cm. Interpretation Summary No evidence of deep venous thrombosis in either lower extremity. Deep venous insufficiency lasting >1000 milliseconds is identified in the BILATERAL common femoral veins. Superficial venous insufficiency lasting >500 milliseconds is identified in the bilateral below knee grater saphenous and ante rior accessory greater saphenous veins. Assessment/Plan Jeanine Sandoval is a 54 year old female with HPI as above who has bilateral venous insufficiency and anenlarging venous stasis ulcer. She has venous insufficiency of accessory greater saphenous veins bilaterally as evidenced by her venous duplex. Her L venous stasis ulcer is not infected however it is irritated and inflamed. She was instructed to use bacitracin and gauze over L sided ulcer and then wrap her legs with HAYLEE wraps daily to resolve the swelling and reduce the size of the ulcer. She continues wearing compression stockings on the right. She stopped using bacitracin and started using mupirocin with improvement in ulcer. - L leg mupirocin and gauze over L venous ulcer - HAYLEE wraps for L leg - compression stockings over the right - RTC 1 month Patient seen and examined with Dr. Otero on 02/21/20. Henry Irving DO PGY2 Vascular Surgery NO RUNNER Julia Kendrick RN - 02/21/2020 9:30 AM Joy Sandoval is a 54 year old female comes to clinic independent in ambulation for follow up varicose veins. Pt comes alone . Pt in NAD w/ pain reported 0/10. Pt preferred language is Japanese. Pt. denies fall in last 12 months. Allergies and medications reviewed and updated. Pt to monitor BP at home if it remains elevated or he is to become symptomatic he is to contact his PCP or go directly to the ER NO RUNNER documented in this encounter Plan of Treatment Date Type Specialty Care Team Description 04/03/2020 Office Visit Vascular Surgery Werner Otero MD [address] [place] [address] [phone] Health Maintenance Due Date Last Done Comments DTaP,Tdap,and Td Vaccines (1 - 07/02/1986 Tdap) PAP SMEAR 07/02/1988 Breast Cancer Screening 2007 (MAMMOGRAM) COLON CANCER SCREENING ANNUAL 07/02/2017 FIT/FOBT COLON CANCER SCREENING FIT DNA 07/02/2017 EVERY 3 YEARS COLON CANCER SCREENING 07/02/2017 SIGMOIDOSCOPY EVERY 5 YEARS COLONOSCOPY 07/02/2017 Colorectal Cancer Screening 07/02/2017 Zoster Recombinant Vaccine 07/02/2017 (SHINGRIX) (1 of 2) INFLUENZA VACCINE (#1) 2019 Depression Screening 09/08/2020 09/09/2019 PNEUMOCOCCAL 0-64 YEARS COMBINED Aged Out No longer eligible based on SERIES patient's age to complete this topic documented as of this encounter Results Not on filedocumented in this encounter Visit Diagnoses Diagnosis Ulcer of left lower extremity, limited t o breakdown of skin - Primary documented in this encounter Insurance Payer Benefit Plan / Subscriber ID Effective Phone Address T e Group Dates [facility] [id number] 2018-[address]se [address] Medic aid HEALTH CHOICE - HE[place] CHO[place] nt [id number] 1 MANAGED MEDICAID [place], [place] MEDICAID [id number] documented as of this encounter
--- OUTSIDE RECORDS SUMMARY | 2020-03-03 17:28 | XMS REPORT | Summary of Care ---
:1965 Author Organization [facility] Address [address] [place] [address] Care Team Providers Name Role Phone Barron Youngblood Primary Care Provider Reason for Visit Reason Comments Follow-up varicose veins Encounter Details Date Type Department Care Team Description 02/21/2020 Office Visit [facility] Vascular Babita Otero U lcer of left lower Surgery- Mario Alberto MCCRARY extremity, limited to [address] breakdown of skin Drive [place], [place] (Primary Dx) [address] [address] [place], [place] [phone] [address] [phone] Allergies No Known Allergiesdocumented as of this [...] with No / Unsure 02/21/2020 9:20 AM AVIONICS MANAGER someone who was confirmed or suspected to have Coronavirus / COVID-19? documented as of this encounter Last Filed Vital Signs Vital Sign Reading Time Taken Comments Blood Pressure 157/101 02/21/2020 9:39 AM AVIONICS MANAGER Pulse 95 02/21/2020 9:39 AM AVIONICS MANAGER Temperature 36.2 C (97.1 F) 02/21/2020 9:39 AM AVIONICS MANAGER Respiratory Rate 20 02/21/2020 9:39 AM AVIONICS MANAGER Oxygen Saturation 96% 02/21/2020 9:39 AM AVIONICS MANAGER Inhaled Oxygen Concentration - - Weight 87.5 kg (193 lb) 02/21/2020 9:39 AM AVIONICS MANAGER Height 167.6 cm (5' 6") 02/21/2020 9:39 AM AVIONICS MANAGER Body Mass Index 31.15 02/21/2020 9:39 AM AVIONICS MANAGER documented in this encounter Patient Instructions Patient InstructionsHenry Irving DO - 02/21/2020 9:30 AM CSTMupirocin ointment for left leg wound Continue compression on right lower extremity; haylee wrap compression to left lower extremity Follow up in clinic in 1 month NICS MANAGER documented in this encounter Progress Notes Maria [...] 1 month Maria Teresa Booker MD, [facility] Vascular Surgery NICS MANAGER Henry Irving DO - 02/21/2020 9:30 AM [...] had vein surgery 6-7 years ago at [place] at [facility] but unsure what surgery it was. She [...] of time. 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 There is a large gastroc marketing production coordinator noted in the right calf. Rt Deep [...] 02/21/20. Henry Irving DO PGY2 Vascular Surgery NICS MANAGER Julia Kendrick RN - 02/21/2020 9:30 AM Joy Sandoval is a 54 year old female comes to clinic independent in ambulation for follow up varicose veins. Pt comes alone . Pt in NAD w/ pain reported 0/10. Pt preferred language is Yi. Pt. denies fall in last 12 months. Allergies and medications reviewed and updated. Pt to monitor BP at home if it remains elevated or he is to become symptomatic he is to contact his PCP or go directly to the ER NICS MANAGER documented in this encounter Plan of Treatment Date Type Specialty Care Team Description 04/03/2020 Office Visit Vascular Surgery Werner Otero MD [address] [place] [address] [phone] Health Maintenance Due Date Last Done Comments [...] Effective Phone Address T e Group Dates [facility] [id number] 2018-Prese [address] Medic aid HEALTH CHOICE - HEALTH CHOICE nt [id number] 1 MANAGED MEDICAID [place], [place] MEDICAID [id number] documented as of this encounter
--- OUTSIDE RECORDS SUMMARY | 2020-03-03 17:28 | XMS REPORT | Continuity of Care Document ---
:1965 Author Organization [facility] t Address [address] [place] [address] [address] [place] [address] Care Team Providers Name Role Phone Shanna MCCRARY Attending Clinician Problems This patient has no known problems. Allergies, Adverse Reactions, Alerts This patient has no known allergies or adverse reactions. Medications This patient has no known medications. Procedures This patient has no known procedures. Encounters Start End Encounter Admission Attending Care Care Encounter Source Date/Time Date/Time Type Type Clinicians Facility Department ID 2020-02-21 2020-02-21 Office ISABELLE Otero [id number] 09:20:27 11:10:16 Visit Babita Llanes [id number] Eder [id number] Celi [id number] count includes the [facility] [address] [facility] Results This patient has no known results.
[2020-03-03] MEDS ORDERED: hydrOXYzine HCL 25 MG TAB ONE (18:16)
[2020-03-03] MEDS ORDERED: predniSONE 20 MG TAB ONE (18:16)
[2020-03-03] MEDS ORDERED: FAMOTIDINE 20 MG TAB ONE (18:16)
--- NOTE | 2020-03-03 19:28 | EDPHYS ---
Physician Documentation [facility] Name: Jeanine Sandoval Age: 54 yrs Sex: Female : 1965 Arrival Date: 03/03/2020 Time: 17:34 Bed 19 Private MD: ED Physician Duglas Alcala HPI: 03/03 17:50 This 54 yrs old Female presents to ER via Ambulatory with complaints of jmm Allergic Reaction, Leg Pain. 17:50 The patient presents with itching, rash. Onset: The symptoms/episode began/occurred jmm gradually, 3 day(s) ago. Associated signs and symptoms: Pertinent negatives: fever. This is a 54 year old female with a history of htn that presents to the ED with complaints of generalized rash which began at her hands. Patient states the rash is now diffuse. Patient states rash initially began Thursday. Patient also began a new pain medication (tramadol) on night. . Historical: - Allergies: 17:44 Latex, Natural Rubber; hb - PMHx: 17:44 Hypertension; hb - PSHx: 17:44 Hysterectomy; Tubal ligation; hb - Immunization history:: Adult Immunizations up to date. - Social history:: Smoking status: Patient reports the use of cigarette tobacco products, denies chronic smoking, but will smoke occasionally. ROS: 17:50 Constitutional: Negative for fever, chills, and weight loss, Cardiovascular: Negative jmm for chest pain, palpitations, and edema, Respiratory: Negative for shortness of breath, cough, wheezing, and pleuritic chest pain. 17:50 Skin: Positive for rash. 17:50 All other systems are negative. Exam: 17:50 Constitutional: This is a well developed, well nourished patient who is awake, alert, jmm and in no acute distress. Head/Face: atraumatic. Eyes: EOMI, no conjunctival erythema appreciated ENT: Moist Mucus Membranes Neck: Trachea midline, Supple Chest/axilla: Normal chest wall appearance and motion. Cardiovascular: Regular rate and rhythm. No edema appreciated Respiratory: Normal respirations, no respiratory distress appreciated Abdomen/GI: Non distended, soft Back: Normal ROM 17:50 Skin: papular rash noted to the hands, forearms, and legs. 17:50 Neuro: Orientation: is normal, Mentation: is normal, Memory: is normal. 17:50 Psych: Behavior/mood is pleasant, cooperative. Vital Signs: 17:41 BP 176 / 86; Pulse 89; Resp 16; Temp 98.3; Pulse Ox 100% on R/A; Pain 10/10; hb MDM: 17:50 Patient medically screened. [facility] 19:24 Data reviewed: vital signs, nurses notes. Counseling: I had a detailed discussion with stephanie the patient and/or guardian regarding: the historical points, exam findings, and any diagnostic results supporting the discharge/admit diagnosis, the need for outpatient follow up, to return to the emergency department if symptoms worsen or persist or if there are any questions or concerns that arise at home. ED course: Patient is alert and non toxic in appearance in the ED. No signs of resp distress. Rash appears consistent with scabies opposed to drug rash. Administered Medications: 18:04 Drug: hydrOXYzine 50 mg Route: PO; hb 18:04 Drug: Pepcid 20 mg Route: PO; hb 18:04 Drug: predniSONE 60 mg Route: PO; hb Disposition: 03/04 07:12 Co-signature as Attending Physician, Duglas Alcala MD. rn Disposition: 03/03/20 19:28 Discharged to Home. Impression: Rash and other nonspecific skin eruption. - Condition is Stable. - Discharge Instructions: Rash. - Prescriptions for Elimite 5 % Topical Cream - apply 1 application by TOPICAL route one time Wash after 12 hours.; 60 gram. Hydroxyzine HCl 25 mg Oral Tablet - take 1 tablet by ORAL route every 6 hours As needed; 30 tablet. Prednisone 20 mg Oral Tablet - take 3 tablet by ORAL route once daily for 5 days; 15 tablet. orphenadrine citrate 100 mg Oral Tablet Sustained Release - take 1 tablet by ORAL route 2 times per day As needed; 20 tablet. - Medication Reconciliation Form, Thank You Letter, Antibiotic Education, Prescription Opioid Use form. - Follow up: Private Physician; When: 2 - 3 days; Reason: Recheck today's complaints, Continuance of care, Re-evaluation by your physician. Signatures: Braeden Jackson RN RN Piotr Iqbal PA PA jmm Nieto, Roman, MD MD rn Baxter, Heather, RN RN Corrections: (The following items were deleted from the chart) 03/03 19:36 19:28 03/03/2020 19:28 Discharged to Home. Impression: Rash and other nonspecific skin sg eruption. Condition is Stable. Forms are Medication Reconciliation Form, Thank You Letter, Antibiotic Education, Prescription Opioid Use. Follow up: Private Physician; When: 2 - 3 days; Reason: Recheck today's complaints, Continuance of care, Re-evaluation by your physician. stephanie
--- NOTE | 2020-03-03 19:28 | ER ---
Nurse's Notes [facility] Name: Jeanine Sandoval Age: 54 yrs Sex: Female : 1965 Arrival Date: 03/03/2020 Time: 17:34 Bed 19 Private MD: Diagnosis: Rash and other nonspecific skin eruption Presentation: 03/03 17:41 Chief complaint: Itchy rash all over x 3 days. Started Tramadol 4 days ago. Last dose hb was yesterday. Denies SOB. Coronavirus screen: At this time, the client does not indicate any symptoms associated with coronavirus-19. Ebola Screen: No symptoms or risks identified at this time. Risk Assessment: Do you want to hurt yourself or someone else? Patient reports no desire to harm self or others. Onset of symptoms was February 29, 2020. 17:41 Method Of Arrival: Ambulatory hb 17:41 Acuity: TRINA 4 hb 17:43 Initial Sepsis Screen: Does the patient meet any 2 criteria? No. Patient's initial hb sepsis screen is negative. Does the patient have a suspected source of infection? No. Patient's initial sepsis screen is negative. Historical: - Allergies: 17:44 Latex, Natural Rubber; hb - PMHx: 17:44 Hypertension; hb - PSHx: 17:44 Hysterectomy; Tubal ligation; hb - Immunization history:: Adult Immunizations up to date. - Social history:: Smoking status: Patient reports the use of cigarette tobacco products, denies chronic smoking, but will smoke occasionally. Screenin:36 Abuse screen: Denies threats or abuse. Denies injuries from another. Nutritional sg screening: No deficits noted. Tuberculosis screening: No symptoms or risk factors identified. Fall Risk None identified. Assessment: 18:04 General: Appears in no apparent distress. Behavior is cooperative, anxious. Pain: Pain hb currently is 10 out of 10 on a pain scale. Neuro: Level of Consciousness is awake, alert, obeys commands, Oriented to person, place, time, situation. Cardiovascular: Patient's skin is warm and dry. Respiratory: Airway is patent Respiratory effort is even, unlabored, Respiratory pattern is regular, symmetrical. GI: No signs and/or symptoms were reported involving the gastrointestinal system. : No signs and/or symptoms were reported regarding the genitourinary system. EENT: No signs and/or symptoms were reported regarding the EENT system. Derm: Rash noted that is urticaria, entire body. Musculoskeletal: Reports chronic leg pain. Vital Signs: 17:41 BP 176 / 86; Pulse 89; Resp 16; Temp 98.3; Pulse Ox 100% on R/A; Pain 10/10; hb ED Course: 17:34 Patient arrived in ED. ds1 17:43 Triage completed. hb 17:44 Arm band placed on. hb 17:45 Piotr Euceda PA is PHCP. [facility] 17:45 Duglas Alcala MD is Attending Physician. [facility] 18:00 Keesha Spicer, RN is Primary Nurse. hb 19:36 Patient has correct armband on for positive identification. sg 19:36 No provider procedures requiring assistance completed. Patient did not have IV access sg during this emergency room visit. Administered Medications: 18:04 Drug: hydrOXYzine 50 mg Route: PO; hb 18:04 Drug: Pepcid 20 mg Route: PO; hb 18:04 Drug: predniSONE 60 mg Route: PO; hb Outcome: 19:28 Discharge ordered by MD. [facility] 19:36 Discharged to home ambulatory. sg 19:36 Condition: stable 19:36 Discharge instructions given to patient, Instructed on discharge instructions, follow up and referral plans. medication usage, Demonstrated understanding of instructions, follow-up care, medications, Prescriptions given X 4. 19:36 Patient left the ED. sg Signatures: Braeden Jackson RN RN Piotr Euceda PA PA [facility] Ada Medina ds1 Keesha Spicer RN RN Alexia Rogel RN RN ca1 Corrections: (The following items were deleted from the chart) 18:04 17:41 BP 211 / 106; Pulse 89bpm; Resp 16bpm; Pulse Ox 100% RA; Temp 98.3F; Pain 10/10; hb hb 19:29 19:29 Reassessment: Patient appears in no apparent distress at this time. Patient is ca1 alert, oriented x 3, equal unlabored respirations, skin warm/dry/pink. ca1
[2020-03-03 21:38] VITALS: BP 176/86; TEMP 98.3; O2SAT 100
== END 2020-03-03 19:36 | disposition home or self-care (01) ==
LOC: ER 17:26
DX: R21 Rash and other nonspecific skin eruption (principal); I10 Essential (primary) hypertension; Z91.040 Latex allergy status; Z91.048 Other nonmedicinal substance allergy status; F17.210 Nicotine dependence, cigarettes, uncomplicated
CPT/HCPCS: 99283; J7512

== ENCOUNTER 2020-09-04 13:25 | Emergency (ER) | payer OTHER ==
--- OUTSIDE RECORDS SUMMARY | 2020-09-04 13:28 | XMS REPORT | Continuity of Care Document ---
:1965 Author Organization [facility] t Address [address] [place] [address] [address]. [address] [place] [address] Care Team Providers Name Role Phone Glory Plummer DO Attending Clinician Shanna MCCRARY Attending Clinician Problems This patient has no known problems. Allergies, Adverse Reactions, Alerts This patient has no known allergies or adverse reactions. Medications This patient has no known medications. Procedures This patient has no known procedures. Encounters Start End Encounter Admission Attending Care Care Encounter Source Date/Time Date/Time Type Type Clinicians Facility Department ID 2020-03-18 2020-03-18 Emergency Elian [facility] [id number] 11:37:00 12:27:00 [place] [id number] [place] [id number] [place] [id number] 2020-02-21 2020-02-21 Office ISABELLE Otero [id number] 09:20:27 11:10:16 Visit Babita [place]anes [id number] [place] [id number] Profess[place] [phone] [facility] [address] Building Results This patient has no known results.
--- NOTE | 2020-09-04 19:53 | ER ---
Nurse's Notes [facility] Name: Jeanine Sandoval Age: 55 yrs Sex: Female : 1965 Arrival Date: 09/04/2020 Time: 13:29 Bed Waiting Private MD: Barron Youngblood E Diagnosis: Presentation: 09/04 13:58 Chief complaint: Patient states: Dizziness x 3 days, worse with position change. jl7 Coronavirus screen: Client denies travel out of the [place] in the last 14 days. At this time, the client does not indicate any symptoms associated with coronavirus-19. Ebola Screen: No symptoms or risks identified at this time. Initial Sepsis Screen: Does the patient meet any 2 criteria? No. Patient's initial sepsis screen is negative. Does the patient have a suspected source of infection? No. Patient's initial sepsis screen is negative. Risk Assessment: Do you want to hurt yourself or someone else? Patient reports no desire to harm self or others. Onset of symptoms was September 02, 2020. Care prior to arrival: None. 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 - Social history:: Smoking status: Patient reports the use of cigarette tobacco products, smokes one-half pack cigarettes per day. Vital Signs: 13:58 BP 136 / 88; Pulse 67; Resp 17; Temp 97.1; Pulse Ox 98% ; Weight 86.18 kg; jl7 ED Course: 13:29 Patient arrived in ED. mr 13:29 Barron Youngblood MD is Private Physician. mr 13:59 Triage completed. 7 14:00 Arm band placed on right wrist. Patient placed in waiting room, Patient notified of 7 wait time. 19:52 Patient's name was called from ER lobby. No response. Unable to locate patient. Will bb disposition as left without being seen by a provider. Administered Medications: No medications were administered Outcome: 19:53 Patient left the ED. bb Signatures: Casi Du Brenda, RN RN bb Tanisha Joel, RN RN jl7
[2020-09-04 19:57] VITALS: BP 136/88; TEMP 97.1; O2SAT 98
== END 2020-09-04 19:53 | disposition left against medical advice (07) ==
LOC: ER 13:25
DX: R42 Dizziness and giddiness (principal); Z53.21 Procedure and treatment not carried out due to patient leaving prior to being seen by health care provider
CPT/HCPCS: 99281

== ENCOUNTER 2021-03-10 11:47 | Emergency (ER) | payer OTHER ==
--- OUTSIDE RECORDS SUMMARY | 2021-03-10 11:51 | XMS REPORT | Continuity of Care Document ---
:1965 Author Organization [facility] t Address [address] [place] [address] [place] [address] Care Team Providers Name Role Phone SHANNA Attending Clinician Unavailable Glory Mancilla DO Attending Clinician Glory MANCILLA Attending Clinician Unavailable Shanna MCCRARY Attending Clinician Pc, Vascular Room 1 - Attending Clinician Unavailable Audie MCCRARY, K.H. Attending Clinician AUDIE, K.H. Attending Clinician Unavailable Payers Payer Name Policy Type Policy Number Effective Date Expiration Date [facility] [id number] 2020 CHOICE MEDICAID 00:00:00 Problems Condition Condition Condition Status Onset Resolution Last Treating Co mments Source Name Details Category Date Date Treatment Clinician Date Varicose Varicose Disease Active Unive rs veins of veins of 11-10 [place]y [place] extrem[place] extremit[place] 00 Me dical s with s with Branch inflammati inflammati on on Venous Venous Disease Active Univers ulcer of ulcer of 11-10 ity of ankle, ankle, 00:00: [place] left left 00 Medical Branch Hypertensi Hypertensi Disease Active 2020- U nivers on on 11-10 ity of 00:00: [place] [address] Medical Branch Allergies, Adverse Reactions, Alerts Allergy Allergy Status Severity Reaction(s) Onset Inactive Treating Comm ents Source Name Type Date Date Clinician LATEX DRUG Active Rash 2019-04 Univers INGREDI 2-13 ity of 00:00: [place] [address] Medical [place] NO KNOWN Drug Active Univers ALLERGIE Class ity of S [facility] Social History Social Habit Start Date Stop Date Quantity Comments Source Sex Assigned At Uni versity of [facility] [place] [facility] Exposure to SARS-CoV-2 Not sure [facility] [place] (event) Medical Branch Smoking Status Start Date Stop Date Source Unknown if ever [facility] Medications Ordered Filled Start Stop Current Ordering Indication Dosage Frequency Signature Comments Components Source Medication Medication Date Date Medication? Clinician (SIG) Name Name mupirocin 2 2019-04 Yes [id number] Apply to Univers % ointment 1-17 area(s) 3 ity of 00:00: (three) [place] 00 times Medical daily. Branch mupirocin 2 2019-04 Yes [id number] Apply to Univers % ointment 1-17 area(s) 3 ity of 00:00: (three) [place] 00 times Medical daily. Branch traMADoL 50 2019-04 2020- No [id number] 50mg Take 1 Uni vers mg tablet 1-17 11-25 tablet by ity of 00:00: 05:59 mouth [place] 00 :00 every 6 Medical (six) Branch hours as needed for Pain (scale 4-6) for up to 7 days. Indication s: acute pain traMADoL 50 2019-04 2020- No 4647 50mg Take 1 Uni vers mg tablet 1-17 11-25 tablet by ity of 00:00: 05:59 mouth [place] 00 :00 every 6 Medical (six) Branch hours as needed for Pain (scale 4-6) for up to 7 days. Indication s: acute pain Compression 2020-0 Yes [id number] Use as Univers Socks, 6- directed ity of Medium Misc 00:00: [place] 00 Medical Branch Compression 2020-0 Yes [id number] Use as Univers Socks, 6-05 directed ity of Medium Misc 00:00: [place] 00 Medical Branch Compression 2020-0 Yes [id number] Use as Univers Socks, 6-05 directed ity of Medium Misc 00:00: [place] 00 Medical Branch Compression 2020-0 Yes [id number] Use as Univers Socks, 6-05 directed ity of Medium Misc 00:00: [place] 00 Medical Branch Compression 2020-0 Yes [id number] Use as Univers Socks, 6-05 directed ity of Medium Misc 00:00: [place] 00 Medical Branch Compression 2020-0 Yes [id number] Use as Univers Socks, 6-05 directed ity of Medium Misc 00:00: [place] 00 Medical Branch Compression 2020-0 Yes [id number] Use as Univers Socks, 6-05 directed ity of Medium Misc 00:00: [place] 00 Medical Branch Compression 2020-0 Yes [id number] Use as Univers Socks, 6-05 directed ity of Medium Misc 00:00: [place] 00 Medical Branch Compression 2020-0 Yes [id number] Use as Univers Socks, 6-05 directed ity of Medium Misc 00:00: [place] Medical [facility] Compression 2020-0 Yes [id number] Use as Univers Socks, 6-05 directed ity of Medium Misc 00:00: [place] 00 Medical Branch lisinopril- 2020-0 Yes TK 1 T PO U nivers hydrochloro 5-27 QD ity of thiazide 00:00: [place] 20-25 mg 00 Medical per tablet Branch lisinopril- 2019-0 Yes TK 1 T PO U nivers hydrochloro 5-27 QD ity of thiazide 00:00: [place] 20-25 mg 00 Medical per tablet Branch lisinopril- 0 Yes TK 1 T PO U nivers hydrochloro 5-27 QD ity of thiazide 00:00: [place] 20-25 mg 00 Medical per tablet Branch lisinopril- 2019-0 Yes TK 1 T PO U nivers hydrochloro 5-27 QD ity of thiazide 00:00: [place] 20-25 mg 00 Medical per tablet Branch lisinopril- 2019-0 Yes TK 1 T PO U nivers hydrochloro 5-27 QD ity of thiazide 00:00: [place] 20-25 mg 00 Medical per tablet Branch lisinopril- 2019-0 Yes TK 1 T PO U nivers hydrochloro 5-27 QD ity of thiazide 00:00: [place] 20-25 mg 00 Medical per tablet Branch lisinopril- 2019-0 Yes TK 1 T PO U nivers hydrochloro 5-27 QD ity of thiazide 00:00: [place] 20-25 mg 00 Medical per tablet Branch lisinopril- 2020-0 Yes TK 1 T PO U nivers hydrochloro 5-27 QD ity of thiazide 00:00: [place] 20-25 mg 00 Medical per tablet Branch lisinopril- 2020-0 Yes TK 1 T PO U nivers hydrochloro 5-27 QD ity of thiazide 00:00: [place] 20-25 mg 00 Medical per tablet Branch lisinopril- 2020-0 Yes TK 1 T PO U nivers hydrochloro 5-27 QD ity of thiazide 00:00: [place] 20-25 mg 00 Medical per tablet Branch Vital Signs Vital Name Observation Time Observation Value Comments Source Systolic blood 2020-02-21 15:39:00 157 mm[Hg] Univer sity of pressure [facility] [place] [facility] Diastolic blood 2020-02-21 15:39:00 101 mm[Hg] Unive rsity of pressure [facility] [place] [facility] Heart rate 2020-02-21 15:39:00 95 /min Universi ty of [facility] [place] [facility] Body temperature 2020-02-21 15:39:00 36.17 Ghazala Univ ersity of [facility] [place] [facility] Respiratory rate 2020-02-21 15:39:00 20 /min Univ ersity of [facility] [place] [facility] Body height 2020-02-21 15:39:00 167.6 cm Universi ty [facility] [place] [facility] [place] Body weight 2020-02-21 15:39:00 87.544 kg [facility] [place] [facility] [place] BMI 2020-02-21 15:39:00 31.15 kg/m2 [facility]i ty [facility] [place] [facility] Oxygen saturation in 2020-02-21 15:39:00 96 /min University of Arterial blood by [facility] Pulse oximetry Branch Systolic blood 2020-02-21 15:39:00 157 mm[Hg] Univer sity of pressure [facility] [place] [facility] Diastolic blood 2020-02-21 15:39:00 101 mm[Hg] Unive rsity of pressure [facility] [place] [facility] Heart rate 2020-02-21 15:39:00 95 /min Universi ty of [facility] Branch Body temperature 2020-02-21 15:39:00 36.17 Ghazala Univ ersity of [facility] Branch Respiratory rate 2020-02-21 15:39:00 20 /min Univ ersity of [facility] Branch Body height 2020-02-21 15:39:00 167.6 cm [facility] [place] [facility] Body weight 2020-02-21 15:39:00 87.544 kg [facility] [place] [facility] BMI 2020-02-21 15:39:00 31.15 kg/m2 [facility] [place] [facility] Oxygen saturation in 2020-02-21 15:39:00 96 /min University of Arterial blood by [facility] Pulse oximetry Branch Systolic blood 2019-11-11 13:52:00 145 mm[Hg] Univer sity of pressure [place] [facility] [place] Diastolic blood 2019-11-11 13:52:00 106 mm[Hg] Unive rsity of [facility] Heart rate 2019-11-11 13:52:00 72 /min Universi ty of [facility] [place] [facility] Body temperature 2019-11-11 13:18:00 35.72 Ghazala Univ ersity of [facility] [place] [facility] Respiratory rate 2019-11-11 13:18:00 18 /min Univ ersity of [facility] [place] [facility] Body weight 2019-11-11 13:18:00 88.905 kg [facility]i ty [facility] [place] [facility] [place] BMI 2019-11-11 13:18:00 29.80 kg/m2 Universi ty of [facility] [place] [facility] Heart rate 2019-09-09 14:57:00 80 /min Universi ty of [facility] [place] [facility] Body temperature 2019-09-09 14:57:00 36.83 Ghazala Univ ersity of [facility] [place] [facility] Respiratory rate 2019-09-09 14:57:00 20 /min Univ ersity of [facility] [place] [facility] Body height 2019-09-09 14:57:00 172.7 cm [facility] [place] [facility] [place] Body weight 2019-09-09 14:57:00 89.812 kg [facility] [place] [facility] BMI 2019-09-09 14:57:00 30.11 kg/m2 Universi ty of [facility] [place] [facility] Oxygen saturation in 2019-09-09 14:57:00 98 /min [facility] Arterial blood by [facility] Pulse oximetry Branch Systolic blood 2019-09-09 14:57:00 149 mm[Hg] Univer sity of [facility] Diastolic blood 2019-09-09 14:57:00 97 mm[Hg] Unive rsity of [facility] Procedures This patient has no known procedures. Encounters Start End Encounter Admission Attending Care Care Encounter Source Date/Time Date/Time Type Type Clinicians Facility Department ID 2020-04-03 2020-04-[address] [facility] [id number] Univers 08:45:00 08:45:00 BABITA [id number] ity o f [facility] [place] [facility] 2020-03-18 2020-03-18 [facility] [id number] 11:37:00 12:27:00 [place] [id number] [place] [id number] [place] [id number] 2020-03-18 2020-03-18 Emergency [facility] [id number] Univers 11:37:00 11:37:00 HOA leesayunior [facility] 2020-02-21 2020-02-21 Office [facility] [id number] 09:20:27 11:10:16 Visit [place]ita [place] [id number] [place] [id number] [facility] [id number] [address] 2020-02-21 2020-02-21 Office [facility] [id number] [facility] 09:20:27 11:10:16 Visit [place] [id number] ity of [id number] [id number] [place] [address] 2020-02-21 2020-02-21 Outpatient R [facility] [id number] Univers 09:30:00 09:30:00 BABITA [id number] piedad saez [facility] 2020-02-21 2020-02-21 Outpatient R [facility] [id number] Univers 09:30:00 09:30:00 BABITA daniel [facility] [place] [facility] 2019-12-23 2019-12-23 Outpatient R [facility] [id number] Univers 08:00:00 08:00:00 BABITA saez [facility] 2019-12-23 2019-12-23 Outpatient R [facility] [id number] Univers 08:00:00 08:00:00 BABITA [id number] piedad saez [facility] 2019-11-16 2019-11-16 Telephone [facility] [id number] Univers 00:00:00 00:00:00 [place] [id number] [id number] [phone] [address] 2019-11-11 2019-11-15 Office [facility] [id number] Univers 08:10:37 12:41:20 Visit [place] [id number] ity [facility] [id number] [id number] [address] 2019-11-11 2019-11-11 Outpatient R [facility] [id number] Univers 08:00:00 08:00:00 BABITA piedad daniel [facility] [place] [facility] 2019-11-11 2019-11-11 Outpatient R [facility] [id number] Univers 08:00:00 08:00:00 BABITA daniel [facility] [place] [facility] 2019-11-04 2019-11-04 Telemedici [facility] [id number] Univers 09:43:35 12:48:41 ne Visit [place] [id number] ity [facility] [id number] [id number] [address] 2019-11-04 2019-11-04 [facility] [id number] Univers 11:15:00 11:15:00 BABITA [id number] piedad daniel [facility] [place] [facility] 2019-11-04 2019-11-04 [facility] [id number] Univers 11:15:00 11:15:00 BABITA daniel [facility] [place] [facility] 2019-10-18 2019-10-18 Outpatient R [facility] [id number] Univers 08:00:00 08:00:00 BABITA [id number] piedad daniel [facility] [place] [facility] 2019-10-07 2019-10-07 Outpatient [facility] [id number] Univers 08:45:00 08:45:00 BABITA ipedad daniel [facility] [place] [facility] 2019-10-07 2019-10-07 [facility] [id number] Univers 08:45:00 08:45:00 BABITA daniel [facility] [place] [facility] 2019-09-13 2019-09-13 [facility]er [facility], Adc Vascular Room 1 - [facility] [id number] Univers 11:04:00 12:04:00 Visit Regine De Leon [id number]. 10 ity [place] [id number] [id number] [place] dical nal [address] [employer] [employer] 2019-09-13 2019-09-13 [facility] [id number] Univers 11:00:00 11:00:00 [facility]-09[facility]-09-[address] [facility] [id number] Univers 11:00:00 11:00:00 [id number] [facility] 2019-09-13 2019-09-[address] [facility] [id number] Univers 11:00:00 [facility]:00[facility]00 [facility] 2019-09-09 2019-09-09 Office [facility] [id number] Univers 09:18:06 10:45:23 Visit [place]ita [place] [id number] ity [facility] [id number] [id number] [place] dical nal [address] [employer] 2019-09-09 2019-09-09 Outpatient R [facility] [id number] Univers 09:15:00 10:45:23 BABITA daniel [facility] [place] [facility] 2019-09-09 2019-09-09 Outpatient R [facility] [id number] Univers 09:15:00 09:15:00 BABITA daniel [facility] [place] [facility] Results This patient has no known results.
[2021-03-10] MEDS ORDERED: METHYLPREDNISOLONE 125 MG INJ ONE (12:11)
--- NOTE | 2021-03-10 12:38 | EDPHYS ---
Physician Documentation [facility] Name: Jeanine Sandoval Age: 55 yrs Sex: Female : 1965 Arrival Date: 03/10/2021 Time: 11:49 Bed 5 Private MD: ED Physician Duglas Alcala HPI: 03/10 12:08 This 55 yrs old Female presents to ER via Ambulatory with complaints of rn Allergic Reaction. 12:08 The patient presents with itching, rash. rn 12:08 Onset: The symptoms/episode began/occurred 2 day(s) ago. Associated signs and symptoms: rn Pertinent positives: rash, Pertinent negatives: abdominal pain, Altered mental status chest pain, fever, Light headed shortness of breath, vomiting. Possible causes: The patient has no known obvious cause for the symptoms. At home the patient or guardian has treated the symptoms with Benadryl. Severity of symptoms: At their worst the symptoms were mild in the emergency department the symptoms are unchanged. The patient has not experienced similar symptoms in the past. The patient has not recently seen a physician. Patient reports thinks is having an allergic reaction. Reports 2 days of rash to arms/legs/face. Rash itches. No swelling or shortness of breath. No fever. Has a chronic wound to the left lower extremity and things touched face with that hand, rash on face appears different than the one on extremities.. 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 - Social history:: Smoking status: Patient reports the use of cigarette tobacco products, smokes one-half pack cigarettes per day. - Family history:: not pertinent. - Hospitalizations: : No recent hospitalization is reported. ROS: 12:08 Constitutional: Negative for fever, chills, and weight loss, Eyes: Negative for injury, rn pain, redness, and discharge, ENT: Negative for injury, pain, and discharge, Neck: Negative for injury, pain, and swelling, Cardiovascular: Negative for chest pain, palpitations, and edema, Respiratory: Negative for shortness of breath, cough, wheezing, and pleuritic chest pain, Abdomen/GI: Negative for abdominal pain, nausea, vomiting, diarrhea, and constipation, MS/Extremity: Negative for injury and deformity, Skin: Positive for skin rash and itching Neuro: Negative for headache, weakness, numbness, tingling, and seizure. Exam: 12:08 Constitutional: This is a well developed, well nourished patient who is awake, alert, rn and in no acute distress. Head/Face: Normocephalic, atraumatic. Eyes: Periorbital areas with no swelling, redness, or edema. ENT: No oral lesions, moist mucous membranes, no stridor, no tongue swelling or lip swelling. Erythematous papular rash around the mouth and on nose with honey colored crusting Cardiovascular: Regular rate and rhythm. No pulse deficits. Respiratory: No increased work of breathing, no retractions or nasal flaring. Abdomen/GI: Soft, non-tender Skin: Warm, dry, papular rash over upper and lower extremities, no fluctuance or warmth. MS/ Extremity: Pulses equal, no cyanosis. Chronic wound of the left lower extremity, no purulence, beefy red, no streaking or fluctuance. Neuro: Awake and alert, GCS 15 Vital Signs: 11:57 BP 171 / 97; Pulse 83; Resp 18; Temp 98.1; Pulse Ox 100% ; Weight 86.18 kg; Height 5 vg1 ft. 4 in. (162.56 cm); Pain 0/10; 11:57 Body Mass Index 32.61 (86.18 kg, 162.56 cm) vg1 MDM: 12:02 Patient medically screened. rn 12:08 Differential diagnosis: Acute allergic reaction, impetigo, folliculitis. Data reviewed: rn vital signs, nurses notes, and as a result, I will discharge patient. Counseling: I had a detailed discussion with the patient and/or guardian regarding: the historical points, exam findings, and any diagnostic results supporting the discharge/admit diagnosis, the need for outpatient follow up, to return to the emergency department if symptoms worsen or persist or if there are any questions or concerns that arise at home. Special discussion: I discussed with the patient/guardian in detail that at this point there is no indication for admission to the hospital. It is understood, however, that if the symptoms persist or worsen the patient needs to return immediately for re-evaluation. Based on the history and exam findings, there is no indication for further emergent testing or inpatient evaluation. I discussed with the patient/guardian the need to see the primary care provider for further evaluation of the symptoms. 12:37 Data interpreted: Pulse oximetry: on room air is 100 %. Interpretation: normal. rn Administered Medications: 12:14 Drug: SOLU-Medrol (methylPREDNISolone sodium succinate) 125 mg Route: IM; Site: right iw ventrogluteal; 12:20 Follow up: Response: No adverse reaction iw Disposition Summary: 03/10/21 12:37 Discharge Ordered Location: Home rn Problem: new rn Symptoms: have improved rn Condition: Stable rn Diagnosis - Impetigo, unspecified rn - Rash and other nonspecific skin eruption rn Followup: rn - With: Private Physician - When: As needed - Reason: Recheck today's complaints, Re-evaluation by your physician Discharge Instructions: - Discharge Summary Sheet rn - Rash, Adult rn - Impetigo, Adult rn Forms: - Medication Reconciliation Form rn - Thank You Letter rn - Antibiotic rn cardiovascular - Prescription Opioid Use rn - Work release form ss Prescriptions: - mupirocin 2 % Topical ointment - apply 1 application by TOPICAL route 3 times per day for 5 days; 1 tube; rn Refills: 0, Product Selection Permitted - Cephalexin 500 mg Oral Capsule - take 1 capsule by ORAL route every 12 hours for 10 days; 20 capsule; Refills: rn 0, Product Selection Permitted - Prednisone 20 mg Oral Tablet - take 3 tablets by ORAL route once daily for 5 days; 15 tablet; Refills: 0, rn Product Selection Permitted Signatures: Charity Plummer RN RN Duglas Overton MD MD rn Garcia, Victoria, RN RN vg1
--- NOTE | 2021-03-10 12:38 | ER ---
Nurse's Notes [facility] Name: Jeanine Sandoval Age: 55 yrs Sex: Female : 1965 Arrival Date: 03/10/2021 Time: 11:49 Bed 5 Private MD: Diagnosis: Impetigo, unspecified;Rash and other nonspecific skin eruption Presentation: 03/10 11:57 Chief complaint: Patient states: States ate 'sweet and sour sauce' two days ago and vg1 noticed hives on both arms legs and around mouth; denies difficulty breathing or shortness of breath or NVD. Coronavirus screen: Vaccine status: Patient reports being unvaccinated. Client denies travel out of the [place] in the last 14 days. Ebola Screen: Patient negative for fever greater than or equal to 101.5 degrees Fahrenheit, and additional compatible Ebola Virus Disease symptoms. Onset: The symptoms/episode began/occurred 2 day(s) ago. Anaphylaxis evaluation, no signs or symptoms of anaphylaxis were noted. Initial Sepsis Screen: Does the patient meet any 2 criteria? No. Patient's initial sepsis screen is negative. Does the patient have a suspected source of infection? No. Patient's initial sepsis screen is negative. Risk Assessment: Do you want to hurt yourself or someone else? Patient reports no desire to harm self or others. Onset of symptoms was March 08, 2021. 11:57 Method Of Arrival: Ambulatory vg1 11:57 Acuity: TRINA 3 vg1 Triage Assessment: 12:00 General: Appears in no apparent distress. comfortable, Behavior is calm, cooperative. vg1 Pain: Denies pain. Derm: Rash noted that is itchy, red. 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 - Social history:: Smoking status: Patient reports the use of cigarette tobacco products, smokes one-half pack cigarettes per day. - Family history:: not pertinent. - Hospitalizations: : No recent hospitalization is reported. Screenin:23 Abuse screen: Denies threats or abuse. Denies injuries from another. Nutritional iw screening: No deficits noted. Tuberculosis screening: No symptoms or risk factors identified. Fall Risk None identified. Assessment: 12:23 General: Appears in no apparent distress. Behavior is calm, cooperative. Pain: Denies iw pain. Neuro: Level of Consciousness is awake, alert, obeys commands, Oriented to person, place, time, situation, Moves all extremities. Full function. Cardiovascular: Patient's skin is warm and dry. Respiratory: Airway is patent Respiratory effort is even, unlabored, Breath sounds are clear bilaterally. GI: No signs and/or symptoms were reported involving the gastrointestinal system. Derm: Rash noted that is itchy, on chest, right arm, left arm, right leg and left leg. Musculoskeletal: Range of motion: intact in all extremities. Vital Signs: 11:57 BP 171 / 97; Pulse 83; Resp 18; Temp 98.1; Pulse Ox 100% ; Weight 86.18 kg; Height 5 vg1 ft. 4 in. (162.56 cm); Pain 0/10; 11:57 Body Mass Index 32.61 (86.18 kg, 162.56 cm) vg1 ED Course: 11:49 Patient arrived in ED. as 12:00 Triage completed. vg1 12:00 Arm band placed on. vg1 12:02 Duglas Alcala MD is Attending Physician. rn 12:02 Charity Plummer, ADENIKE is Primary Nurse. iw 12:23 Patient has correct armband on for positive identification. iw 13:03 No provider procedures requiring assistance completed. Patient did not have IV access iw during this emergency room visit. Administered Medications: 12:14 Drug: SOLU-Medrol (methylPREDNISolone sodium succinate) 125 mg Route: IM; Site: right iw ventrogluteal; 12:20 Follow up: Response: No adverse reaction iw Outcome: 12:37 Discharge ordered by . rn 13:03 Discharged to home ambulatory. iw 13:03 Condition: good 13:03 Discharge instructions given to patient, Instructed on discharge instructions, follow up and referral plans. medication usage, Demonstrated understanding of instructions, follow-up care, medications, Prescriptions given X 2. 13:04 Patient left the ED. iw Signatures: Sophia Mcleod Irene, RN ADENIKE iw Duglas Alcala MD MD rn Garcia, Victoria, RN RN 1
[2021-03-10 13:10] VITALS: BP 171/97; TEMP 98.1; O2SAT 100
== END 2021-03-10 13:04 | disposition home or self-care (01) ==
LOC: ER 11:47
DX: L01.00 Impetigo, unspecified (principal); I10 Essential (primary) hypertension; F17.210 Nicotine dependence, cigarettes, uncomplicated; Z91.040 Latex allergy status; Z91.048 Other nonmedicinal substance allergy status
CPT/HCPCS: 96372; 99283; J2930

== ENCOUNTER 2021-06-13 06:32 | Emergency (ER) | payer OTHER ==
--- OUTSIDE RECORDS SUMMARY | 2021-06-13 06:35 | XMS REPORT | Continuity of Care Document ---
:1965 Author Organization [facility] t Address [address] [place] [address] Care Team Providers Name Role Phone CARMINA Attending Clinician Unavailable Glory Mancilla DO Attending Clinician Glory MANCILLA Attending Clinician Unavailable Carmina MCCRARY Attending Clinician Pc, Vascular Room 1 - Attending Clinician Unavailable Audie MCCRARY, K.H. Attending Clinician AUDIE, K.H. Attending Clinician Unavailable Payers Payer Name Policy Type Policy Number Effective Date Expiration Date [facility] [id number] 2020 CHOICE MEDICAID 00:00:00 Problems Condition Condition [...] nivers on on 11-10 ity of 00:00: [place] [id number] Medical Branch Allergies, Adverse Reactions, Alerts Allergy Allergy Status Severity Reaction(s) Onset Inactive Treating Comm ents Source Name Type Date Date Clinician LATEX DRUG Active Rash 2019-04 Univers INGREDI 2-13 ity of 00:00: [place] [id number] Medical [place] NO KNOWN Drug Active Univers ALLERGIE Class ity of S [facility] Social History Social Habit Start Date Stop Date Quantity Comments Source Sex Assigned At Uni versity of [facility] Exposure to SARS-CoV-2 Not sure Un iversity of [place] (event) Medical Branch Smoking Status Start Date Stop Date Source Unknown [facility] Medications Ordered Filled Start Stop Current Ordering Indication Dosage Frequency Signature Comments Components Source Medication Medication Date Date Medication? Clinician (SIG) Name Name mupirocin 2 2019-04 Yes [id number] Apply to Univers % ointment 1-17 area(s) 3 ity of 00:00: (three) [place] 00 times Medical daily. Branch mupirocin 2 2019-04 Yes [id number] Apply to Univers % ointment 1-17 area(s) [...] Indication s: acute pain Compression 2020-0 Yes [id number] Use as Univers Socks, 6- directed ity of Medium Misc 00:00: [place] 00 Medical Branch Compression 2020-0 Yes [id number] Use as Univers Socks, 6-05 directed ity of Medium Misc 00:00: [place] 00 Medical Branch Compression 2020-0 Yes [id number] Use as Univers Socks, 6-05 directed ity of Medium Misc 00:00: [place] 00 Medical Branch Compression 2020-0 Yes [id number] Use as Univers Socks, 6-05 directed ity of Medium Misc 00:00: [place] 00 Medical Branch Compression 2020-0 Yes [id number] Use as Univers Socks, 6-05 directed ity of Medium Misc 00:00: [place] 00 Medical Branch Compression 2020-0 Yes [id number] Use as Univers Socks, 6-05 directed ity of Medium Misc 00:00: [place] 00 Medical Branch Compression 2020-0 Yes [id number] Use as Univers Socks, 6-05 directed ity of Medium Misc 00:00: [place] 00 Medical Branch Compression 2020-0 Yes [id number] Use as Univers Socks, 6-05 directed ity of Medium Misc 00:00: [place] 00 Medical Branch Compression 2020-0 Yes [id number] Use as Univers Socks, 6-05 directed ity of Medium Misc 00:00: [place] [facility] Compression 2020-0 Yes [id number] Use as Univers Socks, 6-05 directed ity [...] hydrochloro 5-27 QD ity of thiazide 00:00: [place] 20-25 mg 00 Medical per tablet Branch Vital Signs Vital Name Observation Time Observation Value Comments Source Systolic blood 2020-02-21 15:39:00 157 mm[Hg] Univer sity of pressure [facility] Diastolic blood 2020-02-21 15:39:00 101 mm[Hg] Unive rsity of pressure [facility] Heart rate 2020-02-21 15:39:00 95 /min Universi ty of [facility] Body temperature 2020-02-21 15:39:00 36.17 Ghazala Univ ersity of [facility] Respiratory rate 2020-02-21 15:39:00 20 /min Univ ersity of [facility] Body height 2020-02-21 15:39:00 167.6 cm Universi ty of [place] [facility] [place] Body weight 2020-02-21 15:39:00 87.544 kg Universi ty [facility] [place] [facility] [place] BMI 2020-02-21 15:39:00 31.15 kg/m2 Universi ty [facility] [place] [facility] Oxygen saturation in 2020-02-21 15:39:00 96 /min University of Arterial blood by [facility] Pulse oximetry Branch Systolic blood 2020-02-21 15:39:00 157 mm[Hg] Univer sity of pressure [facility] Diastolic blood 2020-02-21 15:39:00 101 mm[Hg] Unive rsity of pressure [facility] Heart rate 2020-02-21 15:39:00 95 /min Universi ty of [facility] Branch Body temperature 2020-02-21 15:39:00 36.17 Ghazala Univ ersity of [facility] Branch Respiratory rate 2020-02-21 15:39:00 20 /min Univ ersity of [facility] Branch Body height 2020-02-21 15:39:00 167.6 cm [facility]i ty [facility] [place] [facility] Body weight 2020-02-21 15:39:00 87.544 kg [facility]i ty [facility] [place] [facility] BMI 2020-02-21 15:39:00 31.15 kg/m2 [facility]i ty [facility] [place] [facility] Oxygen saturation in 2020-02-21 15:39:00 96 /min University of Arterial blood by [facility] Pulse oximetry Branch Systolic blood 2019-11-11 13:52:00 145 mm[Hg] Univer sity of pressure [place] [facility] [place] Diastolic blood 2019-11-11 13:52:00 106 mm[Hg] Unive rsity of [facility] Heart rate 2019-11-11 13:52:00 72 /min Universi ty of [facility] Body temperature 2019-11-11 13:18:00 35.72 Ghazala Univ ersity of [facility] Respiratory rate 2019-11-11 13:18:00 18 /min Univ ersity of [facility] Body weight 2019-11-11 13:18:00 88.905 kg Universi ty of [place] [facility] [place] BMI 2019-11-11 13:18:00 29.80 kg/m2 Universi ty of [facility] Heart rate 2019-09-09 14:57:00 80 /min Universi ty of [facility] Body temperature 2019-09-09 14:57:00 36.83 Ghazala Univ ersity of [facility] Respiratory rate 2019-09-09 14:57:00 20 /min Univ ersity of [facility] Body height 2019-09-09 14:57:00 172.7 cm [facility]i ty [facility] [place] [facility] [place] Body weight 2019-09-09 14:57:00 89.812 kg [facility] [place] [facility] BMI 2019-09-09 14:57:00 30.11 kg/m2 Universi ty of [facility] Oxygen saturation in 2019-09-09 14:57:00 98 /min [facility] Arterial blood by [facility] Pulse oximetry Branch Systolic blood 2019-09-09 14:57:00 149 mm[Hg] Univer sity of [facility] Diastolic blood 2019-09-09 14:57:00 97 mm[Hg] Unive rsity of [facility] Procedures This patient has no known procedures. Encounters Start End Encounter Admission Attending Care Care Encounter Source Date/Time Date/Time Type Type Clinicians Facility Department ID 2020-04-03 2020-04-03 Outpatient R CARMINA [facility] [id number] Univers 08:45:00 08:45:00 ISHA [id number] ity o f [facility] 2020-03-18 2020-03-18 [facility] [id number] 11:37:00 12:27:00 [place] [id number] [place] [id number] [place] [id number] 2020-03-18 2020-03-18 Emergency X [facility] ERT [id number] Univers 11:37:00 11:37:00 HOA leesayunior [facility] 2020-02-21 2020-02-21 Office [facility] [id number] Univers 09:20:27 11:10:16 Visit Isha [place] [id number] [id number] [id number] Mt dical [address] 2020-02-21 2020-02-21 Office [facility] [id number] 09:20:27 11:10:16 Visit Isha [place] [id number] [place] [id number] [facility] [id number] [address] 2020-02-21 2020-02-21 Outpatient R [facility] [id number] Univers 09:30:00 09:30:00 ISHA [id number] piedad saez [facility] 2020-02-21 2020-02-21 Outpatient R [facility] [id number] Univers 09:30:00 09:30:00 ISHA daniel [facility] 2019-12-23 2019-12-23 Outpatient R [facility] [id number] Univers 08:00:00 08:00:00 ISHA saez [facility] 2019-12-23 2019-12-23 Outpatient R [facility] [id number] Univers 08:00:00 08:00:00 ISHA [id number] piedad daniel [facility] 2019-11-16 2019-11-16 Telephone [facility] [id number] Univers 00:00:00 00:00:00 Isha [place] [id number] [id number] [id number] [address] 2019-11-11 2019-11-15 Office [facility] [id number] Univers 08:10:37 12:41:20 Visit Isha [place] [id number] ity [facility] [id number] [id number] [address] 2019-11-11 2019-11-11 Outpatient R [facility] [id number] Univers 08:00:00 08:00:00 ISHA piedad daniel [facility] 2019-11-11 2019-11-11 Outpatient R [facility] [id number] Univers 08:00:00 08:00:00 ISHA daniel [facility] 2019-11-04 2019-11-04 Telemedici [facility] [id number] Univers 09:43:35 12:48:41 ne Visit Isha [place] [id number] ity [facility] [id number] [id number] [address] 2019-11-04 2019-11-04 [facility] [id number] Univers 11:15:00 11:15:00 ISHA [id number] piedad daniel [facility] 2019-11-04 2019-11-04 [facility] [id number] Univers 11:15:00 11:15:00 ISHA daniel [facility] 2019-10-18 2019-10-18 Outpatient R [facility] [id number] Univers 08:00:00 08:00:00 ISHA [id number] piedad daniel [facility] 2019-10-07 2019-10-07 [facility] [id number] Univers 08:45:00 08:45:00 ISHA piedad daniel [facility] 2019-10-07 2019-10-07 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 10 [id number] [id number] Mt dical nal 059 [facility] 2019-09-13 2019-09-13 [facility] [id number] Univers 11:00:00 11:00:00 [facility] 2019-09[facility]13 2019-09-[address] [facility] [id number] Univers 11:00:00 11:00:00 [id number] [facility] 2019-09-13 2019-09-13 [address] [facility] [id number] Univers 11:00:00 [facility]:00:[facility] 2019-09-09 2019-09-09 Office [facility] [id number] Univers 09:18:06 10:45:23 Visit Isha [place] [id number] ity [facility] [id number] [id number] Mt dical nal 205 [facility] 2019-09-09 2019-09-09 Outpatient R [facility] [id number] Univers 09:15:00 10:45:23 ISHA daniel [facility] 2019-09-09 2019-09-09 Outpatient R [facility] [id number] Univers 09:15:00 09:15:00 ISHA daniel [facility] Results This patient has no known results.
[2021-06-13] MEDS ORDERED: MORPHINE 4 MG/ML SYR ONE (07:01)
[2021-06-13] MEDS ORDERED: ONDANSETRON 4 MG/2 ML VIAL ONE (07:01)
--- NOTE | 2021-06-13 08:33 | RAD REPORT ---
EXAM DESCRIPTION: US - Extremity Venous Uni Ltd - 06/13/2021 7:29 am CLINICAL HISTORY: PAIN Leg swelling and edema. COMPARISON: Extrem Venous W Compress Juwan dated 04/09/2020 FINDINGS: Right lower extremity venous system was interrogated with Doppler technique. Normal flow, compressibility and augmentation was noted. There is no DVT present. IMPRESSION: No evidence of right lower extremity deep venous thrombosis.
--- NOTE | 2021-06-13 09:00 | RAD REPORT ---
EXAM DESCRIPTION: RAD - Knee Right 3 View - 06/13/2021 8:47 am CLINICAL HISTORY: PAIN COMPARISON: Knee Right 3 View dated 12/23/2013 FINDINGS: Mild diffuse osteopenia is present. Mild medial compartment space arthritic changes are pr esent. No fracture, dislocation or joint effusion.
--- NOTE | 2021-06-13 09:28 | EDPHYS ---
Physician Documentation [facility] Name: Jeanine Sandoval Age: 55 yrs Sex: Female : 1965 Arrival Date: 06/13/2021 Time: 06:37 Bed 6 Private MD: Barron Youngblood E ED Physician Jasvir Macias HPI: 06/13 07:24 This 55 yrs old Female presents to ER via Ambulatory with complaints of Leg Pain. kb 07:24 The patient presents with pain, tenderness. The complaints affect the medial aspect of kb right knee. Context: The problem was sustained at home, resulted from an unknown cause, the patient can fully bear weight, the patient is able to ambulate. Onset: The symptoms/episode began/occurred yesterday. Modifying factors: The symptoms are alleviated by nothing. the symptoms are aggravated by nothing. Associated signs and symptoms: The patient has no apparent associated signs or symptoms. Treatment prior to arrival includes: no previous treatment. Severity of symptoms: At their worst the symptoms were moderate, in the emergency department the symptoms are unchanged. The patient has not experienced similar symptoms in the past. The patient has not recently seen a physician. 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 . - Social history:: Smoking status: Patient reports the use of cigarette tobacco products, smokes one-half pack cigarettes per day. ROS: 07:23 Constitutional: Negative for fever, chills, and weight loss. kb 07:23 MS/extremity: Positive for pain, tenderness, of the medial aspect of right knee. 07:23 All other systems are negative. Exam: 07:24 Constitutional: This is a well developed, well nourished patient who is awake, alert, kb and in no acute distress. Head/Face: Normocephalic, atraumatic. ENT: Moist Mucous membranes Cardiovascular: Regular rate and rhythm with a normal S1 and S2. No gallops, murmurs, or rubs. No pulse deficits. Respiratory: Respirations even and unlabored. No increased work of breathing. Talking in full sentences Skin: Warm, dry with normal turgor. Normal color. Neuro: Awake and alert, GCS 15, oriented to person, place, time, and situation. Moves all extremities. Normal gait. Psych: Awake, alert, with orientation to person, place and time. Behavior, mood, and affect are within normal limits. 07:24 Musculoskeletal/extremity: Extremities: grossly normal except: noted in the medial aspect of right knee: pain, tenderness, ROM: intact in all extremities, Circulation is intact in all extremities. Sensation intact. Weight bearing: able to fully bear weight. Vital Signs: 06:45 BP 152 / 102; Pulse 90; Resp 18; Temp 97.3; Pulse Ox 100% on R/A; Weight 86.18 kg; ganesh Height 5 ft. 4 in. (162.56 cm); Pain 8/10; 06:49 BP 152 / 102; Pulse 90; Resp 18; Temp 97.3; Pulse Ox 99% on NC; Weight 86.18 kg; Height ganesh 5 ft. 4 in. (162.56 cm); Pain 8/10; 06:53 BP 136 / 95; Pulse 85; Pulse Ox 100% ; vc1 07:56 BP 145 / 91; Pulse 63; Pulse Ox 99% on R/A; vc1 08:55 BP 140 / 92; Pulse 65; Resp 17; Pulse Ox 99% on R/A; vg1 06:49 Body Mass Index 32.61 (86.18 kg, 162.56 cm) ganesh MDM: 06:51 Patient medically screened. kb 07:21 Data reviewed: vital signs, nurses notes. Data interpreted: Pulse oximetry: on room air kb is 100 %. Interpretation: normal. 08:21 ED course: No redness, swelling, induration noted to area of pain. Tenderness upon kb palpation noted. . 09:27 Counseling: I had a detailed discussion with the patient and/or guardian regarding: the kb historical points, exam findings, and any diagnostic results supporting the discharge/admit diagnosis, radiology results, the need for outpatient follow up, a family practitioner, to return to the emergency department if symptoms worsen or persist or if there are any questions or concerns that arise at home. 06/13 06:54 Order name: Extremity Venous Unilateral Ltd; Complete Time: 08:35 kb 06/13 08:00 Order name: Knee Right 3 View XRAY; Complete Time: 09:10 kb Administered Medications: 07:03 Drug: morphine 4 mg Route: IVP; Site: right antecubital; vc1 07:54 Follow up: Response: No adverse reaction; No change in condition vg1 07:03 Drug: Zofran (Ondansetron) 4 mg Route: IVP; Site: right antecubital; vc1 07:54 Follow up: Response: No adverse reaction vg1 Disposition Summary: 06/13/21 09:28 Discharge Ordered Location: Home kb Condition: Stable kb Diagnosis - Pain in right knee kb Followup: kb - With: Emergency Department - When: As needed - Reason: Worsening of condition Followup: kb - With: Private Physician - When: 2 - 3 days - Reason: Recheck today's complaints, Continuance of care, Re-evaluation by your physician Discharge Instructions: - Discharge Summary Sheet kb - Musculoskeletal Pain kb - Acute Knee Pain, Adult, [id number] kb Forms: - Medication Reconciliation Form kb - Work release form kb - Thank You Letter kb - Antibiotic Education kb - Prescription Opioid Use kb Prescriptions: - Diclofenac Sodium 75 mg Oral tablet,delayed release (DR/EC) - take 1 tablet by ORAL route 2 times per day As needed; 30 tablet; Refills: 0, kb Product Selection Permitted Addendum: 06/16/2021 19:16 Co-signature as Attending Physician, Jasvir Macias MD. [facility] Signatures: Dispatcher [employer] Anastasia Merida, BOLT MACHINE OPERATOR-C RENATA-Jasvir Villagran MD MD 7 Janet Daniel RN RN bo Calcote, Vanessa, RN RN 1 Jenny Siddiqui RN vg1
--- NOTE | 2021-06-13 09:28 | ER ---
Nurse's Notes [facility] Name: Jeanine Sandoval Age: 55 yrs Sex: Female : 1965 Arrival Date: 06/13/2021 Time: 06:37 Bed 6 Private MD: Barron Youngblood E Diagnosis: Pain in right knee Presentation: 06/13 06:45 Chief complaint: Patient states: Right leg pain. Coronavirus screen: Vaccine status: ganesh Patient reports being unvaccinated. At this time, the client does not indicate any symptoms associated with coronavirus-19. Ebola Screen: Patient negative for fever greater than or equal to 101.5 degrees Fahrenheit, and additional compatible Ebola Virus Disease symptoms Patient denies exposure to infectious person. Patient denies travel to an Ebola-affected area in the 21 days before illness onset. Initial Sepsis Screen: Does the patient meet any 2 criteria? No. Patient's initial sepsis screen is negative. Does the patient have a suspected source of infection? No. Patient's initial sepsis screen is negative. Risk Assessment: Do you want to hurt yourself or someone else? Patient reports no desire to harm self or others. Onset of symptoms was June 12, 2021. 06:45 Method Of Arrival: Ambulatory ganesh 06:45 Acuity: TRINA 3 ganesh Triage Assessment: 06:49 General: Appears uncomfortable, but stoic. Behavior is calm, cooperative. Pain: ganesh Complains of pain in right knee, medial aspect. 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 . - Social history:: Smoking status: Patient reports the use of cigarette tobacco products, smokes one-half pack cigarettes per day. Screenin:52 Abuse screen: Denies threats or abuse. Nutritional screening: No deficits noted. vc1 Tuberculosis screening: No symptoms or risk factors identified. Fall Risk None identified. Assessment: 06:53 Reassessment: No changes from previously documented assessment. ganesh 07:55 Reassessment: Patient appears in no apparent distress at this time. Patient and/or vg1 family updated on plan of care and expected duration. Pain level reassessed. Patient is alert, oriented x 3, equal unlabored respirations, skin warm/dry/pink. pt stated leg pain, 'medication did not work'; provider notified. 08:45 Reassessment: X-Ray at the bedside, patient provided with water as requested. ap3 08:55 Reassessment: Patient appears in no apparent distress at this time. No changes from vg1 previously documented assessment. Patient and/or family updated on plan of care and expected duration. Pain level reassessed. Patient is alert, oriented x 3, equal unlabored respirations, skin warm/dry/pink. Vital Signs: 06:45 BP 152 / 102; Pulse 90; Resp 18; Temp 97.3; Pulse Ox 100% on R/A; Weight 86.18 kg; ganesh Height 5 ft. 4 in. (162.56 cm); Pain 8/10; 06:49 BP 152 / 102; Pulse 90; Resp 18; Temp 97.3; Pulse Ox 99% on NC; Weight 86.18 kg; Height ganesh 5 ft. 4 in. (162.56 cm); Pain 8/10; 06:53 BP 136 / 95; Pulse 85; Pulse Ox 100% ; vc1 07:56 BP 145 / 91; Pulse 63; Pulse Ox 99% on R/A; vc1 08:55 BP 140 / 92; Pulse 65; Resp 17; Pulse Ox 99% on R/A; vg1 06:49 Body Mass Index 32.61 (86.18 kg, 162.56 cm) ganesh ED Course: 06:37 Patient arrived in ED. es 06:37 Barron Youngblood MD is Private Physician. es 06:45 Janet Daniel RN is Primary Nurse. ganesh 06:48 Triage completed. ganesh 06:49 Arm band placed on. ganesh 06:51 [facility]C [facility]. kb 06:51 Jasvir Macias MD is Attending Physician. kb 06:52 Patient has correct armband on for positive identification. Bed in low position. Call vc1 light in reach. Pulse ox on. NIBP on. 06:52 Inserted saline lock: 20 gauge in right antecubital area, using aseptic technique. vc1 Blood collected. 06:52 No provider procedures requiring assistance completed. ganesh 07:29 US Extremity Venous Unilateral Ltd In Process Unspecified. EDMS 08:47 Knee Right 3 View XRAY In Process Unspecified. EDMS 09:39 IV discontinued, intact, bleeding controlled, No redness/swelling at site. Pressure vg1 dressing applied. Administered Medications: 07:03 Drug: morphine 4 mg Route: IVP; Site: right antecubital; vc1 07:54 Follow up: Response: No adverse reaction; No change in condition vg1 07:03 Drug: Zofran (Ondansetron) 4 mg Route: IVP; Site: right antecubital; vc1 07:54 Follow up: Response: No adverse reaction vg1 Outcome: 06:53 Condition: stable ganesh 09:28 Discharge ordered by . kb 09:39 Discharged to home ambulatory. vg1 09:39 Condition: good 09:39 Discharge instructions given to patient, Instructed on discharge instructions, follow up and referral plans. medication usage, Demonstrated understanding of instructions, follow-up care, medications, Prescriptions given X 1. 09:39 Patient left the ED. vg1 Signatures: Dispatcher [employer] EDAnastasia Roque, COIN MACHINE SUPERVISOR-C COIN MACHINE SUPERVISOR-Ckb Riri Alegria Amanda RN RN Jenny Pineda RN RN vg1 Janet Daniel, RN Kitty Cevallos, RN RN vc1
[2021-06-13 09:51] VITALS: TEMP 97.3
[2021-06-13 10:02] VITALS: BP 140/92; O2SAT 99
== END 2021-06-13 09:39 | disposition home or self-care (01) ==
LOC: ER 06:32
DX: M25.561 Pain in right knee (principal); I10 Essential (primary) hypertension; F17.210 Nicotine dependence, cigarettes, uncomplicated; Z86.73 Personal history of transient ischemic attack (TIA), and cerebral infarction without residual deficits; Z91.040 Latex allergy status; Z91.048 Other nonmedicinal substance allergy status
CPT/HCPCS: 73562; 93971; 96375; 96374; 99284; J2405